=== PATIENT | male | born 1955 | race Caucasian/White ===

== ENCOUNTER 2020-02-22 12:42 | Outpatient (CLI) | payer OTHER, SELFPAY ==
--- NOTE | 2020-02-27 13:39 | WPDPFTINT ---
PFT Interpretation PFT Interpretation: This PFT met all criteria for ATS standards and reproducibility FEV/FVC post bronchodilator 54% FEV1 57% or 1.64 liters FVC 75% or 3.04 liters There was a significant improvement of FVC by 17% and 440 ml post bronchodilator TLC 104% RV 159% RV/TLC 58% DLCO 75% when adjusted for alveolar volume but not adjusted for hemoglobin Flow volume loops showed significant expiratory coving Impression: Moderate airflow obstruction with good response to bronchodilators. Air trapping and mildly reduced diffusion capacity. This pattern is suggestive of COPD with Asthma componenet. Clinical correlation is advised.
--- NOTE | 2020-02-27 13:42 | WPDSIXMINUTE ---
Six Minute Walk Six Minute Walk: The patients O2 sats started at 96% and dropped as low as 94% Total walk distance 304.80 meters conclusion:This patient does not qualify for home oxygen therapy.
== END 2020-02-22 12:43 | disposition home or self-care (01) ==
LOC: ANHPFT 12:44
PROVIDERS: PCP Emergency Medicine; Visit Provider Internal Medicine Critical Care Medicine
DX: J44.9 Chronic obstructive pulmonary disease, unspecified (principal)
CPT/HCPCS: 94060; 94618; 94726; 94729

== ENCOUNTER 2020-05-15 10:53 | Emergency (ER) | payer OTHER, SELFPAY ==
[2020-05-15] VITALS (19 sets, daily range): BP systolic 79–125; BP diastolic 49–93; PULSE 76–97; RESP 14–26; TEMP 36.3; O2SAT 96–99
--- NOTE | ~2020-05-15 | XR_ITS ---
XR chest 2V DATE: 05/15/2020 11:28 INDICATION: Chest pain, dizziness. History of COPD. TECHNIQUE: PA and lateral views COMPARISON: None FINDINGS: Left-sided triple lead pacemaker device with leads overlying coronary sinus, right atrium a nd right ventricle. Status post sternotomy, coronary artery bypass graft surgery and cardiac valve replacement. Normal heart size. No hilar or mediastinal enlargement. No pulmonary infiltrate or consolidation, pleural effusion or pulmonary vascular congestion or pneumo thorax. IMPRESSION: No active cardiopulmonary disease Status post sternotomy, coronary bypass graft surgery, cardiac valve replacement Reviewed, dictated and finalized at location A. L PATTERNMAKER IMPRESSION: No active cardiopulmonary disease Status post sternotomy, coronary bypass graft surgery, cardiac valve replacemen t
--- NOTE | 2020-05-15 11:02 | ECG_ITS ---
Measurements Intervals [place] Rate: 80 P: 96 HI: 122 QRS: 160 QRSD: 156 T: 56 QT: 408 QTc: 473 Interpretive Statements ELECTRONIC ATRIAL PACEMAKER WITH INHIBITION ELECTRONIC VENTRICULAR PACEMAKER ATRIAL PREMATURE COMPLEXES NO FURTHER INTERPRETATION IS POSSIBLE ATYPICAL ECG Electronically Signed On 05-15-2020 13:01:12 [employer] by Russell Dumont D.O.
--- NOTE | 2020-05-15 11:19 | ED.CHESTPAIN ---
HPI - Chest Pain General Chief Complaint: Chest Pain Stated Complaint: chest pain Time Seen by Provider: 05/15/20 10:57 Source: patient Mode of arrival: EMS Limitations: no limitations History of Present Illness HPI narrative: This patient is a 64 year old male with history tricuspid regurgitation s/p valve replacement who presents for evaluation left chest pain. He states he was sitting in jewish when he developed left chest pain. He describes his pain has sharp, shooting. He denies radiation of his pain. He does reports dizziness and diaphoresis with his pain. He was evaluated at [facility] and he was referred to [facility]. HE was given aspirin 324 mg and nitroglycerin by EMS. He states his pain has resolved. In 2018 , states he had a valve replacement. He also reports cardiac catheterization that was negative for coronary disease. He does not follow with a insurance compliance analyst. MD complaint: chest pain Timing of current episode: now resolved Onset: during rest Related Data Home Medications Medication Instructions Recorded Confirmed furosemide 20 mg tablet See Rx Instructions .ROUTE .COMPLEX 03/10/19 04/11/20 inhalational spacing device #1 each 03/10/19 04/11/20 pantoprazole 20 mg tablet,delayed 20 mg PO DAILY tablet 03/10/19 04/11/20 release potassium chloride 20 mEq 20 meq PO .COMPLEX 03/10/19 04/11/20 tablet,extended release aspirin 81 mg tablet,delayed 81 mg PO DAILY 04/11/20 04/11/20 release warfarin 2.5 mg tablet 2.5 mg PO DAILY 04/11/20 04/11/20 Allergies Allergy/AdvReac Type Severity Reaction Status Date / Time acenocoumarol AdvReac Unknown Unknown Verified 05/15/20 10:57 Review of Systems Review of Systems: All systems reviewed & are unremarkable except as noted in HPI and below Constitutional: Constitutional: Denies chills and Denies fever(s) Cardiovascular: Cardiovascular: Reports chest pain, Denies rapid heart rate and Denies radiating jaw, neck or arm pain Respiratory: Respiratory: Denies cough and Denies dyspnea Gastrointestinal: Gastrointestinal: Denies abdominal pain and Reports nausea PMFSH Past Medical History Medical History Artificial pacemaker Chronic obstructive pulmonary disease Cirrhosis Complete heart block GERD (gastroesophageal reflux disease) Hepatitis C Sleep apnea Tricuspid insufficiency Family History Family History Father Lung cancer Acute alcoholic intoxication Social History Social History Smoking status: Former smoker Smoking end date: 04/01/16 Alcohol intake: never Exam Narrative: Exam Narrative: GENERAL: Well-appearing, well-nourished, and in no acute distress. HEAD: Normocephalic, atraumatic EYES: PERRLA and EOMI, conjunctiva clear without discharge THROAT:Mucous membranes moist, Oropharynx normal without erythema, exudate, peritonsillar swelling or fluctuance NECK: Supple, without lymphadenopathy or mass RESPIRATORY: No respiratory distress, Airway patent, Respirations non-labored, Clear to auscultation without rales, rhonchi or wheeze HEART: Regular rate and rhythm. No murmur heard. Normal peripheral pulses. ABDOMEN: Soft, nontender, nondistended, normal active bowel sounds. No masses. No rebound or guarding, No organomegaly. EXTREMITIES: No edema, normal strength with full range of motion. SKIN: Warm, dry, normal color without rash NEURO: Alert and oriented x3. CN 2-12 grossly intact. No focal deficits. PSYCH: Normal mood and affect. Course Reevaluation(s) Reevaluation #1: Patient states his pain is still gone. I Discussed that he will be admitted for observation Date: 05/15/20 Time: 12:28 Reevaluation #2: Patient has now decided that he wants to sign AMA. I strongly recommended that he stays for observation to rule out [place]. I discussed that although lab t
[2020-05-15 11:47] LABS: Basophils Percent Auto 0.8 % (0.2-1.2); Eosinophils Absolute Auto 0.1 K/mm3 (0-0.3); Eosinophils Percent Auto 2.5 % (0-4.4); Hematocrit 42.5 % (42.0-52.0); Hemoglobin 14.6 g/dL (14.0-18.0); Immature Granulocyte Absolute 0.02 K/mm3 (0.00-0.031); Immature Granulocyte Percent A 0.4 % (0-0.5); Lymphocytes Absolute Auto 1.47 K/mm3 (0.9-3.2); Lymphocytes Percent Auto 28.8 % (18.3-44.2); Mean Corpuscular HGB Conc 34.4 g/dl (32-36); Mean Corpuscular Hemoglobin 31.5 pg (26-34); Mean Corpuscular Volume 91.8 fl (80-100); Mean Platelet Volume 9.8 fl (7.4-10.4); Monocytes Absolute Auto 0.6 K/mm3 (0.1-0.6); Monocytes Percent Auto 10.8 % (2.6-8.5); Neutrophils Absolute Auto 2.9 K/mm3 (1.3-6.7); Neutrophils Percent Auto 56.7 % (45.5-73.1); Platelet Count Result 109 k/mm3 (150-375); Red Blood Count 4.63 M/mm3 (4.6-6.20); Red Cell Distribution Width 13.2 % (11.5-14.5); White Blood Count 5.1 K/mm3 (4.5-10.0)
[2020-05-15 11:56] LABS: Partial Thromboplastin Time 28.8 SECONDS (22.3-36.8)
[2020-05-15 11:57] LABS: Anion Gap 3 mmol/L (8-16); Blood Urea Nitrogen 17 mg/dL (9-20); Calcium 9.1 mg/dL (8.4-10.2); Carbon Dioxide 28 mmol/L (22-30); Chloride 107 mmol/L (98-107); Estimated CRCL calculation 70 ml/min; Estimated Glomerular Filt Rate > 60; Glucose 97 mg/dL (75-110); Potassium 4.8 mmol/L (3.4-5.0); Sodium 138 mmol/L (137-145)
[2020-05-15 12:03] LABS: INR 1.1; Prothrombin Time 14.5 Seconds (11.1-14.7)
[2020-05-15 12:09] LABS: Troponin I < 0.012 ng/mL (0.000-0.034)
--- NOTE | 2020-05-15 12:09 | ECG_ITS ---
Measurements Intervals [place] Rate: 79 P: 91 MN: 136 QRS: 222 QRSD: 146 T: 55 QT: 407 QTc: 468 Interpretive Statements ELECTRONIC ATRIAL PACEMAKER WITH INHBITION ELECTRONIC VENTRICULAR PACEMAKER BASELINE ARTIFACT- II, III, AVF NO FURTHER INTERPRETATION IS POSSIBLE ATYPICAL ECG Electronically Signed On 05-15-2020 13:07:31 BAND CUTTER by Russell Dumont D.O.
== END 2020-05-15 14:10 | disposition left against medical advice (07) ==
PROVIDERS: Emergency Provider General Practice; PCP Emergency Medicine
DX: J44.9 Chronic obstructive pulmonary disease, unspecified (principal); K74.60 Unspecified cirrhosis of liver; K21.9 Gastro-esophageal reflux disease without esophagitis; G47.30 Sleep apnea, unspecified; Z95.2 Presence of prosthetic heart valve; I07.1 Rheumatic tricuspid insufficiency; Z95.1 Presence of aortocoronary bypass graft; Z87.891 Personal history of nicotine dependence; Z79.82 Long term (current) use of aspirin; Z79.01 Long term (current) use of anticoagulants; Z95.0 Presence of cardiac pacemaker; I49.1 Atrial premature depolarization
CPT/HCPCS: 36415; 71046; 80048; 84484; 85025; 85055; 85610; 85730; 93005; 99284

== ENCOUNTER 2020-06-21 07:40 | Outpatient (CLI) | payer OTHER, SELFPAY ==
--- NOTE | 2020-07-06 10:25 | WPDHOMESLEEP ---
Sleep Study - Home Unattended Date of Study: 06/21/20 Ordering Provider: Lukas Crabtree APRN Interpreting Provider: Rach Ha MD Home Sleep Study Type: Apnea Link Air Height: 1.71 m Weight: 78.018 kg Body Mass Index: 26.5 Neck Circumference (inches): 18 Reason for Sleep Study multiple awakenings at night, daytime sleepiness Sleep History Javan Betancur is a 65 year old man with COPD/asthma overlap, quit tobacco in 2018. He has excessive daytime sleepiness, and wakes up multiple times during the night. He did not complete the sleep questionnaire. [facility] Past Medical History Medical History Artificial pacemaker Chronic obstructive pulmonary disease Cirrhosis Complete heart block GERD (gastroesophageal reflux disease) Hepatitis C Sleep apnea Tricuspid insufficiency Family History Family History Father Lung cancer Acute alcoholic intoxication Social History Social History Smoking status: Former smoker Smoking end date: 04/01/16 Alcohol intake: never Medications Home Medications Medication Instructions Recorded Confirmed Type furosemide 20 mg tablet See Rx Instructions .ROUTE .COMPLEX 03/10/19 04/11/20 History inhalational spacing device #1 each 03/10/19 04/11/20 History pantoprazole 20 mg tablet,delayed 20 mg PO DAILY tablet 03/10/19 04/11/20 History release potassium chloride 20 mEq 20 meq PO .COMPLEX 03/10/19 04/11/20 History tablet,extended release albuterol sulfate 2.5 mg INHALATION Q4-6H PRN 30 01/13/20 04/11/20 Rx Days #90 ml tramadol 50 mg tablet 50 mg PO Q6H PRN #60 tablet 03/05/20 04/11/20 Rx albuterol sulfate 90 mcg/actuation See Rx Instructions .ROUTE 04/11/20 04/11/20 Rx aerosol inhaler .COMPLEX #18 g aspirin 81 mg tablet,delayed 81 mg PO DAILY 04/11/20 04/11/20 History release budesonide-formoterol HFA 160 2 puff INHALATION Q12H #10.2 g 04/11/20 04/11/20 Rx mcg-4.5 mcg/actuation aerosol inhaler tiotropium bromide 2.5 2 puff INHALATION DAILY #4 g 04/11/20 04/11/20 Rx mcg/actuation mist for inhalation warfarin 2.5 mg tablet 2.5 mg PO DAILY 04/11/20 04/11/20 History sildenafil 50 mg tablet 50 mg PO DAILY PRN #30 tablet 05/09/20 Rx zolpidem 10 mg tablet 10 mg PO ONCE PRN #30 tablet 06/02/20 Rx Sleep Procedure This test was performed using 4 channel monitoring including respiratory effort channel, snoring channel, heart rate channel, and oxygen saturation channel. This study was scored using [facility] guidelines. Sleep Architecture Not applicable for home sleep test. Respiratory Analysis Recording time is 5 hours 12 minutes. Evaluation time was 4 hours 50 minutes. The apnea-hypopnea index is 12.2. There were 16 apneas. There were 15 obstructive apneas, 94% of the total and 1 central apnea, 6% of the total. There were 43 hypopneas. There was no evidence of Keith-Pineda respirations. Oximetry Data The oxygen desaturation index is 11.4. The average saturation is 92% which is below normal. The lowest saturation is 41%. The patient desaturated 40 4 times and spent 48 minutes below 88% saturation, 21% of the study. Snoring Profile Snoring was present with 542 episodes. Cardiac Profile The lowest heart rate is 41. The highest heart rate is 155. The mean pulse is 78. Assessment and Plan Assessment and Plan (1) Obstructive sleep apnea: Code(s): G47.33 - Obstructive sleep apnea (adult) (pediatric) Status: Acute Assessment and Plan: This home sleep test using ApneaLink on May shows at least mild obstructive sleep apnea with an apnea-hypopnea index of 12.2 with multiple severe desaturations and sustained hypoxemia for 21% of the study, 48 minutes spent below 88%. The lowest desaturation is 41% and the average saturation is below normal at 92%
[2020-07-06 10:29] VITALS: BMI 26.5
== END 2020-06-21 07:41 | disposition home or self-care (01) ==
LOC: ANHCSM 07:44
PROVIDERS: PCP Emergency Medicine; Visit Provider Nurse Practitioner Family
DX: G47.30 Sleep apnea, unspecified (principal)
CPT/HCPCS: 95806

== ENCOUNTER → 2020-08-27 03:24 | Outpatient (CLI) | payer MEDICARE, MEDICAID, SELFPAY ==
[2020-08-27 19:45] LABS: SARS-CoV-2 RNA PCR Negative
== END ==
PROVIDERS: PCP Emergency Medicine; Visit Provider Internal Medicine Critical Care Medicine
DX: R68.89 Other general symptoms and signs (principal); Z20.822 Contact with and (suspected) exposure to COVID-19
CPT/HCPCS: C9803; U0003; U0005

== ENCOUNTER 2022-05-17 13:21 | Outpatient (CLI) | payer MEDICARE, MEDICAID, SELFPAY ==
[2022-05-17 14:39] LABS: Hematocrit 46.6 % (42.0-52.0); Hemoglobin 15.4 g/dL (14.0-18.0); Mean Corpuscular Hemoglobin 30.8 pg (26-34); Mean Corpuscular Volume 93.2 fl (80-100); Mean Platelet Volume 10.7 fl (7.4-10.4); Platelet Count Result 150 k/mm3 (150-375); Red Cell Distribution Width 13.2 % (11.5-14.5); White Blood Count 8.4 K/mm3 (4.5-10.0)
[2022-05-17 14:40] LABS: Alanine Aminotransferase 26 U/L (6-50); Albumin Level 4.6 g/dL (3.5-5.1); Alkaline Phosphatase 81 U/L (38-126); Anion Gap 7 mmol/L (8-16); Aspartate Amino Transferase 25 U/L (17-59); Bilirubin,Total 0.5 mg/dL (0.2-1.3); Blood Urea Nitrogen 13 mg/dL (9-20); Carbon Dioxide 27 mmol/L (22-30); Chloride 98 mmol/L (98-107); Estimated Glomerular Filt Rate > 60; Glucose 103 mg/dL (65-110); Potassium 4.4 mmol/L (3.4-5.0); Sodium 132 mmol/L (137-145)
[2022-05-17 15:41] LABS: Hepatitis B Surface Antigen Negative (Negative)
[2022-05-20 12:14] LABS: Hepatitis B DNA PCR 2.35 Log IU/mL; Hepatitis B DNA PCR 226 IU/mL
[2022-05-22 03:03] LABS: Hepatitis Be Antibody Reactive; Hepatitis Be Antigen Nonreactive
== END 2022-05-17 13:22 | disposition home or self-care (01) ==
LOC: ANHLAB 13:30
PROVIDERS: PCP Emergency Medicine; Visit Provider Internal Medicine Gastroenterology
DX: K74.60 Unspecified cirrhosis of liver (principal); B19.10 Unspecified viral hepatitis B 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
CPT/HCPCS: 36415; 80053; 85027; 86707; 87340; 87350; 87517

== ENCOUNTER 2022-06-15 00:53 | Day surgery (SDC) | payer MEDICARE, MEDICAID, SELFPAY ==
[2022-06-05 15:11] VITALS: BMI 29.8
[2022-06-15 13:03] VITALS: BP 144/87; PULSE 93; RESP 18; TEMP 36.1; O2SAT 97
[2022-06-15] MEDS: LACTATED RINGERS 1,000 ML 150 ML IV CONT (13:04)
[2022-06-15] MEDS: GENTAMICIN 80MG/SOD CHL 50 ML 80 MG/50 ML BAG 100 MG IVPB (13:09)
--- NOTE | 2022-06-15 13:29 | WPDANESEPPF ---
Anes - Initial Pre Proc Eval Procedure: Operation Date: 06/15/22 14:30 Proposed Procedures p Esophagogastroduodenoscopy - Tomy Barajas MD Date/Time: 06/15/22 13:29 Surgeon: Tomy Barajas MD Pre Op Diagnosis: cirrhosis of the liver Patient Data Age: 66 Gender: M Height: 1.7 m Weight: 91.1 kg Last Vital Signs Temp 36.1 C L 06/15/22 13:03 Pulse 93 06/15/22 13:03 Resp 18 06/15/22 13:03 BP 144/87 H 06/15/22 13:03 Pulse Ox 97 06/15/22 13:03 O2 Del Method Room Air 06/15/22 13:03 Allergies Allergy/AdvReac Type Severity Reaction Status Date / Time acenocoumarol AdvReac Unknown Unknown Verified 06/15/22 13:01 Home Medications Medication Instructions Recorded Confirmed Type inhalational spacing device (Space #1 ea 03/10/19 03/07/21 History Chamber Plus) pantoprazole 20 mg tablet,delayed 20 mg PO DAILY PRN Acid Reflux 03/10/19 06/15/22 History release potassium chloride 20 mEq 20 meq PO .COMPLEX 03/10/19 06/15/22 History tablet,extended release aspirin 81 mg tablet,delayed 81 mg PO DAILY 04/11/20 06/15/22 History release (Adult Aspirin Regimen) budesonide-formoterol HFA 160 2 puff inhalation Q12H #10.2 grams 04/11/20 06/15/22 Rx mcg-4.5 mcg/actuation aerosol inhaler (Symbicort) tiotropium bromide 2.5 2 puff inhalation DAILY #4 grams 04/11/20 06/15/22 Rx mcg/actuation mist for inhalation (Spiriva Respimat) zolpidem 10 mg tablet 10 mg PO ONCE PRN insomnia #30 tabs 05/01/21 06/15/22 Rx spironolactone 25 mg tablet 25 mg PO DAILY 04/17/22 06/15/22 History warfarin 2.5 mg tablet 2.5 mg PO .COMPLEX 04/17/22 06/15/22 History tramadol 50 mg tablet 50 mg PO Q6H PRN pain #60 tabs 05/08/22 06/15/22 Rx albuterol sulfate 2.5 mg/3 mL 2.5 mg (3 mL) inhalation Q4-6H PRN 05/17/22 06/15/22 Rx (0.083 %) solution for nebulization shortness of breath or wheezing 30 days #90 mL albuterol sulfate 90 mcg/actuation See Rx Instructions .Route 05/17/22 06/15/22 Rx aerosol inhaler .COMPLEX #18 grams entecavir 0.5 mg tablet 0.5 mg PO DAILY #30 tabs 05/21/22 06/15/22 Rx Patient hx anesthesia problems: none Family hx anesthesia problems: none Results Review: All pre-operative results and documents have been reviewed as part of the pre-operative evaluation. [facility] Past Medical History Medical History Abdominal distension Artificial pacemaker Chronic obstructive pulmonary disease Cirrhosis Colon cancer screening Complete heart block GERD (gastroesophageal reflux disease) Hepatitis B Hepatitis C Sleep apnea Tricuspid insufficiency Surgical History Surgical History History of heart valve replacement Family History Family History Father Lung cancer Acute alcoholic intoxication Social History Social History Smoking packs per day: 0.5 Smoking cigarettes per day: 10.0 Years smoked: 40 Smoking pack-years: 20.00 Smoking status: Former smoker Tobacco type: cigarettes Smoking end date: 04/01/18 Alcohol intake: never Substance use: never Substance use type: does not use Living arrangements: with family Spiritual care concerns: No Anes - Eval Final PreProcedure Day of Procedure 06/15/22 13:29 Patient weight: obese Heart: regular rate and rhythm Lungs: clear to auscultation Airway: Mallampati scale class II Neurological: alert and oriented Last oral intake: >/= 8 hours ASA classification: IV Emergent: no Anesthetic plan: proceed Anesthesia type and monitoring: general GIVS and standard monitoring Results Review: All pre-operative results and documents have been reviewed as part of the pre-operative evaluation. Informed Consent: The patient's anesthetic plan and its attendant risks and
[2022-06-15] MEDS: AMPICILLIN 2 GM/NS 100 ML 2 GM/100 ML BAG IVPB (13:31)
--- NOTE | 2022-06-15 13:45 | PM.HPGS ---
History of Present Illness History of Present Illness Consent: Risks, benefits, and alternatives have been discussed and questions answered. Patient agrees to proceed with procedure. Chief complaint: cirrhosis of the liver Narrative: Javan Betancur is a 66 year old male with increased abdominal girth and can not get weight off but recent abdominal ultrasound showed cirrhosis, he has HBV (low dna but still present, recently restarted on entecavir given known h/o cirrhosis) Review of Systems Constitutional: Constitutional: Denies headache(s) and Denies weakness Eyes: Eyes: Denies blurry vision ENT: Reports Normal hearing present, Denies headache(s) and Denies neck pain Cardiovascular: Cardiovascular: Denies chest pain and Denies dyspnea Respiratory: Respiratory: Denies dyspnea Gastrointestinal: Gastrointestinal: Reports no additional gastrointestinal complaints Genitourinary: Genitourinary: Denies dysuria Musculoskeletal: Musculoskeletal: Denies neck pain Integumentary/Breasts: Skin/Breast: Denies dry skin Neurologic: Reports Normal hearing present, Denies headache(s) and Denies weakness Psychiatric: Psychiatric: Denies anxiety Endocrine: Endocrine: Denies change in body appearance Hematologic/Lymphatic: Hematologic/Lymphatic: Denies easy bleeding Allergic/Immunologic: Allergic/Immunologic: Denies urticaria PMFSH Past Medical History Medical History Abdominal distension Artificial pacemaker Chronic obstructive pulmonary disease Cirrhosis Colon cancer screening Complete heart block GERD (gastroesophageal reflux disease) Hepatitis B Hepatitis C Sleep apnea Tricuspid insufficiency Surgical History Surgical History History of heart valve replacement Family History Family History Father Lung cancer Acute alcoholic intoxication Social History Social History Smoking packs per day: 0.5 Smoking cigarettes per day: 10.0 Years smoked: 40 Smoking pack-years: 20.00 Smoking status: Former smoker Tobacco type: cigarettes Smoking end date: 04/01/18 Alcohol intake: never Substance use: never Substance use type: does not use Living arrangements: with family Spiritual care concerns: No Meds Home Medications and Allergies Home Medications Medication Instructions Recorded Confirmed Type inhalational spacing device (Space #1 ea 03/10/19 03/07/21 History Chamber Plus) pantoprazole 20 mg tablet,delayed 20 mg PO DAILY PRN Acid Reflux 03/10/19 06/15/22 History release potassium chloride 20 mEq 20 meq PO .COMPLEX 03/10/19 06/15/22 History tablet,extended release aspirin 81 mg tablet,delayed 81 mg PO DAILY 04/11/20 06/15/22 History release (Adult Aspirin Regimen) budesonide-formoterol HFA 160 2 puff inhalation Q12H #10.2 grams 04/11/20 06/15/22 Rx mcg-4.5 mcg/actuation aerosol inhaler (Symbicort) tiotropium bromide 2.5 2 puff inhalation DAILY #4 grams 04/11/20 06/15/22 Rx mcg/actuation mist for inhalation (Spiriva Respimat) zolpidem 10 mg tablet 10 mg PO ONCE PRN insomnia #30 tabs 05/01/21 06/15/22 Rx spironolactone 25 mg tablet 25 mg PO DAILY 04/17/22 06/15/22 History warfarin 2.5 mg tablet 2.5 mg PO .COMPLEX 04/17/22 06/15/22 History tramadol 50 mg tablet 50 mg PO Q6H PRN pain #60 tabs 05/08/22 06/15/22 Rx albuterol sulfate 2.5 mg/3 mL 2.5 mg (3 mL) inhalation Q4-6H PRN 05/17/22 06/15/22 Rx (0.083 %) solution for nebulization shortness of breath or wheezing 30 days #90 mL albuterol sulfate 90 mcg/actuation See Rx Instructions .Route 05/17/22 06/15/22 Rx aerosol inhaler .COMPLEX #18 grams entecavir 0.5 mg tablet 0.5 mg PO DAILY #30 tabs 05/21/22 06/15/22 Rx Allergies Allergy/AdvReac Type Severity Reaction Status Date /
[2022-06-15 13:56] VITALS: BP 114/73; PULSE 74; RESP 20; O2SAT 99
[2022-06-15 14:06] VITALS: BP 108/73; PULSE 77; RESP 21; O2SAT 97
== END 2022-06-15 14:27 | disposition home or self-care (01) ==
PROVIDERS: PCP Emergency Medicine; Visit Provider Internal Medicine Gastroenterology
PROC: 0DJ08ZZ Inspection of Upper Intestinal Tract, Via Natural or Artificial Opening Endoscopic (ICD-10-PCS; CPT 43235; principal; 2022-06-15 14:30)
DX: K29.70 Gastritis, unspecified, without bleeding (principal); K74.60 Unspecified cirrhosis of liver; K21.9 Gastro-esophageal reflux disease without esophagitis; J44.9 Chronic obstructive pulmonary disease, unspecified; G47.30 Sleep apnea, unspecified; B19.10 Unspecified viral hepatitis B 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; B19.20 Unspecified viral hepatitis C 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; I44.2 Atrioventricular block, complete; Z79.82 Long term (current) use of aspirin; Z95.0 Presence of cardiac pacemaker; Z95.4 Presence of other heart-valve replacement; Z79.51 Long term (current) use of inhaled steroids; Z87.891 Personal history of nicotine dependence; E66.9 Obesity, unspecified; Z68.31 Body mass index [BMI] 31.0-31.9, adult
CPT/HCPCS: 43235; J0290; J1580; J2704; J7120

== ENCOUNTER 2022-12-06 13:39 | Outpatient (CLI) | payer MEDICARE, MEDICAID, SELFPAY ==
[2022-12-06 14:23] LABS: Hematocrit 38.9 % (42.0-52.0); Hemoglobin 12.7 g/dL (14.0-18.0); Immature Platelet Fraction Pct 9.3 % (0.9-11.2); Mean Corpuscular HGB Conc 32.6 g/dl (32-36); Mean Corpuscular Hemoglobin 31.1 pg (26-34); Mean Corpuscular Volume 95.3 fl (80-100); Mean Platelet Volume 11.2 fl (7.4-10.4); Platelet Count Result 98 k/mm3 (150-375); Red Blood Count 4.08 M/mm3 (4.6-6.20); Red Cell Distribution Width 13.6 % (11.5-14.5); White Blood Count 5.6 K/mm3 (4.5-10.0)
[2022-12-06 14:36] LABS: Alanine Aminotransferase 36 U/L (6-50); Alkaline Phosphatase 62 U/L (38-126); Anion Gap 4 mmol/L (8-16); Aspartate Amino Transferase 33 U/L (17-59); Bilirubin,Total 0.6 mg/dL (0.2-1.3); Blood Urea Nitrogen 14 mg/dL (9-20); Calcium 8.8 mg/dL (8.4-10.2); Carbon Dioxide 31 mmol/L (22-30); Chloride 104 mmol/L (98-107); Estimated Glomerular Filt Rate > 60; Glucose 120 mg/dL (65-110); Potassium 3.9 mmol/L (3.4-5.0); Sodium 139 mmol/L (137-145)
[2022-12-06 20:39] LABS: Hepatitis B Surface Antigen 3.79 S/C; Hepatitis B Surface Antigen Reactive (Negative)
[2022-12-06 20:42] LABS: Hepatitis B Surface Antigen Re 3.64 S/C; Hepatitis B Surface Antigen Re 3.81 S/C
[2022-12-10 18:51] LABS: Hepatitis B Core Ab Total Reactive (Nonreactive)
== END 2022-12-06 13:40 | disposition home or self-care (01) ==
LOC: ANHLAB 13:45
PROVIDERS: PCP Emergency Medicine; Visit Provider Nurse Practitioner
DX: B19.10 Unspecified viral hepatitis B 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 (principal)
CPT/HCPCS: 36415; 80053; 85027; 85055; 86704; 87340; 87517

== ENCOUNTER 2022-12-26 09:47 | Outpatient (CLI) | payer MEDICARE, MEDICAID, SELFPAY ==
--- NOTE | ~2022-12-26 | US_ITS ---
US right upper quadrant INDICATION: Cirrhosis of the liver. PROCEDURE: Realtime right upper abdominal ultrasound. COMPARISON: No prior studies for comparison. FINDINGS: The pancreas is normal without focal mass or pancreatic ductal dilation. Liver echotexture is heterogeneous. There is nodular liver surface, compatible with cirrhosis. There is normal direct ional flow in the portal vein. There is a 1 cm echogenic focus in the gallbladder lumen without posterior shadowing and associated i nternal vascularity, consistent with polyp. Common bile duct measures 6.8 mm. No sonographic Downey 's sign. IMPRESSION: 1: Cirrhosis. 2: Gallbladder polyp measuring 1 cm. Reviewed, dictated and finalized at location B.
== END 2022-12-26 09:48 | disposition home or self-care (01) ==
LOC: ANHIMG 09:50
PROVIDERS: PCP Emergency Medicine; Visit Provider Internal Medicine Gastroenterology
DX: K74.60 Unspecified cirrhosis of liver (principal); B19.10 Unspecified viral hepatitis B 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; K82.4 Cholesterolosis of gallbladder
CPT/HCPCS: 76705

== ENCOUNTER 2023-05-29 07:22 | Outpatient (CLI) | payer MEDICARE, MEDICAID, SELFPAY ==
--- NOTE | ~2023-05-29 | US_ITS ---
Limited Abdominal Sonogram: Real-time sonographic imaging of the right upper quadrant was performed. Clinical History: Cirrhosis Findings: The liver appears mildly heterogeneous and nodular, with no evidence of mass lesion or alicia e duct dilatation. Main portal vein demonstrates normal direction of flow. The gallbladder is well di stended, and contains a small echogenic gallstone. No gallbladder wall thickening. The common bile du ct measures 4 mm. The visualized pancreas, aorta, and IVC are unremarkable. Impression: Morphologic findings of the liver consistent with cirrhosis. Small gallstone. Reviewed, dictated and finalized at location . AIS[employer] SPECIALIST Impression: Morphologic findings of the liver consistent with cirrhosis. Small gallstone.
== END 2023-05-29 07:23 | disposition home or self-care (01) ==
PROVIDERS: PCP Emergency Medicine; Visit Provider Internal Medicine Gastroenterology
DX: K80.20 Calculus of gallbladder without cholecystitis without obstruction (principal); K74.60 Unspecified cirrhosis of liver
CPT/HCPCS: 76705

== ENCOUNTER 2023-06-13 11:54 | Outpatient (CLI) | payer MEDICARE, MEDICAID, SELFPAY ==
[2023-06-13 12:56] LABS: Hematocrit 44.5 % (42.0-52.0); Hemoglobin 14.2 g/dL (14.0-18.0); Immature Platelet Fraction Pct 10.2 % (0.9-11.2); Mean Corpuscular HGB Conc 31.9 g/dl (32-36); Mean Corpuscular Hemoglobin 30.6 pg (26-34); Mean Corpuscular Volume 95.9 fl (80-100); Mean Platelet Volume 11.6 fl (7.4-10.4); Platelet Count Result 104 k/mm3 (150-375); Red Blood Count 4.64 M/mm3 (4.6-6.20); Red Cell Distribution Width 13.7 % (11.5-14.5); White Blood Count 6.9 K/mm3 (4.5-10.0)
[2023-06-13 13:08] LABS: Alanine Aminotransferase 29 U/L (6-50); Albumin Level 4.2 g/dL (3.5-5.1); Alkaline Phosphatase 101 U/L (38-126); Anion Gap 6 mmol/L (8-16); Aspartate Amino Transferase 30 U/L (17-59); Bilirubin,Total 0.4 mg/dL (0.2-1.3); Blood Urea Nitrogen 11 mg/dL (9-20); Calcium 9.3 mg/dL (8.4-10.2); Carbon Dioxide 31 mmol/L (22-30); Chloride 102 mmol/L (98-107); Estimated Glomerular Filt Rate > 60; Glucose 143 mg/dL (65-110); Sodium 139 mmol/L (137-145)
[2023-06-17 07:47] LABS: Hepatitis B DNA PCR Not Detected
[2023-06-19 21:16] LABS: Hepatitis Delta Antibody NEGATIVE
== END 2023-06-13 11:55 | disposition home or self-care (01) ==
PROVIDERS: PCP Emergency Medicine; Visit Provider Internal Medicine Gastroenterology
DX: B19.10 Unspecified viral hepatitis B 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 (principal); K74.60 Unspecified cirrhosis of liver
CPT/HCPCS: 36415; 80053; 85027; 85055; 86692; 87517

== ENCOUNTER 2023-06-19 11:43 | Emergency (ER) | payer MEDICARE, MEDICAID, SELFPAY ==
[2023-06-19 11:55] VITALS: BP 152/85; PULSE 77; RESP 20; TEMP 36.6; O2SAT 97
--- NOTE | 2023-06-19 12:37 | ED.SKABFB ---
HPI - Skin/Abscess/Foreign Bdy General Chief complaint: Skin/Abscess/Foreign Body Stated complaint: Right Hand Thumb Pain Time Seen by Provider: 06/19/23 12:37 Source: patient Mode of arrival: ambulatory Limitations: no limitations History of Present Illness HPI narrative: 67 yo M presents with c/o redness, swelling and pain to R thumb for 2 days. Denies injury. afebrile. ROM and distal NV intact. All systems reviewed and negative except as noted above. Related Data Home Medications Medication Instructions Recorded Confirmed inhalational spacing device (Space #1 ea 03/10/19 06/19/23 Chamber Plus) potassium chloride 20 mEq 20 meq PO .COMPLEX 03/10/19 06/19/23 tablet,extended release aspirin 81 mg tablet,delayed 81 mg PO DAILY 04/11/20 06/19/23 release (Adult Aspirin Regimen) spironolactone 25 mg tablet 25 mg PO DAILY 04/17/22 06/19/23 warfarin 2.5 mg tablet 2.5 mg PO .COMPLEX 04/17/22 06/19/23 Allergies Allergy/AdvReac Type Severity Reaction Status Date / Time acenocoumarol AdvReac Unknown Unknown Verified 06/19/23 11:57 Review of Systems Review of Systems: CONSTITUTIONAL: Denies fever, chills, or sweats. EYES: Denies visual changes, redness, or discharge. ENT: Denies rhinorrhea, congestion, sore throat, or otalgia. CARDIOVASCULAR: Denies chest pain, palpitations, or edema. RESPIRATORY: Denies cough or dyspnea. GASTROINTESTINAL: Denies abdominal pain, nausea, vomiting, or diarrhea. GENITOURINARY: Denies dysuria or hematuria. SKIN: Denies rash or itching. reports redness, swelling, tenderness to R thumb MUSCULOSKELETAL: Denies back pain, joint pain, or myalgia. NEUROLOGIC: Denies headache, numbness, or weakness. PSYCHIATRIC: Denies anxiety or depression. All other systems reviewed are negative, except as documented in HPI. [facility]LY [facility] Past Medical History Medical History Abdominal distension Artificial pacemaker Chronic obstructive pulmonary disease Cirrhosis Colon cancer screening Complete heart block GERD (gastroesophageal reflux disease) Hepatitis B Hepatitis C History of Coumadin therapy Sleep apnea Thrombocytopenia Tricuspid insufficiency Surgical History Surgical History History of heart valve replacement Family History Family History Father Lung cancer Acute alcoholic intoxication Social History Social History Smoking packs per day: 0.5 Smoking cigarettes per day: 10.0 Years smoked: 40 Smoking pack-years: 20.00 Smoking status: Former smoker Tobacco type: cigarettes Smoking end date: 04/01/18 Alcohol intake: never Substance use: never Substance use type: does not use Lack of Transportation: YES Lack of Food: Sometimes True Current Housing: I Have Housing Concerned About Future Housing: No Difficulty Paying Gas/Electric Bills: No Difficulty Paying for Meds: No Currently Unemployed: No Education: Associate Degree Living arrangements: with family Spiritual care concerns: No Comments At time of signature, agree with nursing past medical, surgical, social and family history. There is no relevant family history pertinent to the presenting complaint. Exam Narrative: GENERAL: This is a well-nourished, well-developed patient, in no apparent distress. HEAD: normocephalic, atraumatic. EYES: PERRL. Sclera clear/white. Vision is grossly intact. EARS: External ears normal NOSE: External nose normal NECK: Neck supple, non-tender without lymphadenopathy, masses or thyromegaly. CARDIOVASCULAR: Regular rate and rhythm without murmurs, gallops, or rubs. RESPIRATORY: Clear to auscultation. Breath sounds equal bilaterally. No wheezes, rales, or rhonchi. SKIN: warm, Dry, intact with no suspicious lesions or rash,
== END 2023-06-19 13:10 | disposition home or self-care (01) ==
PROVIDERS: Emergency Provider Nurse Practitioner Family; PCP Emergency Medicine
DX: L03.011 Cellulitis of right finger (principal); B95.62 Methicillin resistant Staphylococcus aureus infection as the cause of diseases classified elsewhere; Z87.891 Personal history of nicotine dependence; J44.9 Chronic obstructive pulmonary disease, unspecified; K74.60 Unspecified cirrhosis of liver; K21.9 Gastro-esophageal reflux disease without esophagitis; Z95.0 Presence of cardiac pacemaker; Z79.82 Long term (current) use of aspirin; Z79.01 Long term (current) use of anticoagulants
CPT/HCPCS: 10060; 87070; 87075; 87147; 87181; 87205; 99213; G0463

== ENCOUNTER 2023-09-28 13:20 | Emergency (ER) | payer MEDICARE, MEDICAID, SELFPAY ==
[2023-09-28 13:31] VITALS: BP 115/69; PULSE 91; RESP 16; TEMP 36.4; O2SAT 94
--- NOTE | 2023-09-28 13:50 | ED.GENADULT ---
HPI - General Adult General Chief complaint: Unspecified Stated complaint: right side jaw issue Time Seen by Provider: 09/28/23 13:50 History of Present Illness HPI narrative: Patient presents to [facility] complaining of right-sided jaw pain. He reports symptoms have been present for approximately 3 days, worsening. He reports tenderness and swelling. He denies any injury or trauma. He denies fever, chills, sweats. Denies any wounds or openings to the skin Related Data Home Medications Medication Instructions Recorded Confirmed inhalational spacing device (Space #1 ea 03/10/19 09/28/23 Chamber Plus) potassium chloride 20 mEq 20 meq PO .COMPLEX 03/10/19 09/28/23 tablet,extended release aspirin 81 mg tablet,delayed 81 mg PO DAILY 04/11/20 09/28/23 release (Adult Aspirin Regimen) spironolactone 25 mg tablet 25 mg PO DAILY 04/17/22 09/28/23 warfarin 2.5 mg tablet 2.5 mg PO .COMPLEX 04/17/22 09/28/23 Allergies Allergy/AdvReac Type Severity Reaction Status Date / Time acenocoumarol AdvReac Unknown Unknown Verified 09/28/23 13:27 Review of Systems Constitutional: Constitutional: Reports as per HPI and Reports no additional constitutional complaints ENT: Reports system reviewed and no additional complaints, except as documented and Reports facial pain Cardiovascular: Cardiovascular: Reports as per HPI Respiratory: Respiratory: Reports as per HPI [facility] Past Medical History Medical History Abdominal distension Acute hepatitis B with delta-agent 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 Acute non-recurrent frontal sinusitis Artificial pacemaker Bacterial endocarditis Bronchitis Chronic obstructive pulmonary disease Cirrhosis Colon cancer screening Complete heart block COPD mixed type Cough GERD (gastroesophageal reflux disease) GERD without esophagitis Hepatitis B Hepatitis C History of Coumadin therapy Non-rheumatic tricuspid valve insufficiency Primary osteoarthritis involving multiple joints Sinus congestion Sleep apnea Thrombocytopenia Tobacco use Tricuspid insufficiency Viral hepatitis B with hepatitis delta, 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 Vitamin D deficiency Surgical History Surgical History History of heart valve replacement Family History Family History Father Lung cancer Acute alcoholic intoxication Social History Social History Smoking packs per day: 0.5 Smoking cigarettes per day: 10.0 Years smoked: 40 Smoking pack-years: 20.00 Smoking status: Former smoker Tobacco type: cigarettes Smoking end date: 04/01/18 Alcohol intake: never Substance use: never Substance use type: does not use Do You Feel Safe in your Home?: Yes Lack of Transportation: YES Lack of Food: Sometimes True Concerned About Future Housing: Decline to Answer Difficulty Paying Gas/Electric Bills: YES Difficulty Paying for Meds: YES Currently Unemployed: No Education: Associate Degree Difficulty w/ Childcare or Family Care: No Living arrangements: with family Spiritual care concerns: No Exam Const: General: cooperative and comfortable HENMT: Ears: TM normal on the right and TM normal on the left Face images: 1. there is mild swelling with extreme tenderness to palpation. Very minimally red Mouth: Yes Normal oral and palatal mucosa present Other: There is swelling and tenderness to the right side is face extending from the nasal labial fold to the ear. There are no visible open wounds. Patient does shave with a razor. He does not recall cutting himself Neck: Neck: normal visual inspection and no lymphadenopathy Chest: Chest palpation & inspection: normal inspection of the chest and normal palpation of entire chest wall Resp: Effort & Inspect
--- NOTE | 2023-09-28 14:22 | ED.GENADULT ---
HPI - General Adult General Chief complaint: Unspecified Stated complaint: right side jaw issue Time Seen by Provider: 09/28/23 13:50 Related Data Home Medications Medication Instructions Recorded Confirmed inhalational spacing device (Space #1 ea 03/10/19 09/28/23 Chamber Plus) potassium chloride 20 mEq 20 meq PO .COMPLEX 03/10/19 09/28/23 tablet,extended release aspirin 81 mg tablet,delayed 81 mg PO DAILY 04/11/20 09/28/23 release (Adult Aspirin Regimen) spironolactone 25 mg tablet 25 mg PO DAILY 04/17/22 09/28/23 warfarin 2.5 mg tablet 2.5 mg PO .COMPLEX 04/17/22 09/28/23 Allergies Allergy/AdvReac Type Severity Reaction Status Date / Time acenocoumarol AdvReac Unknown Unknown Verified 09/28/23 13:27 [facility] Past Medical History Medical History Abdominal distension Acute hepatitis B with delta-agent 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 Acute non-recurrent frontal sinusitis Artificial pacemaker Bacterial endocarditis Bronchitis Chronic obstructive pulmonary disease Cirrhosis Colon cancer screening Complete heart block COPD mixed type Cough GERD (gastroesophageal reflux disease) GERD without esophagitis Hepatitis B Hepatitis C History of Coumadin therapy Non-rheumatic tricuspid valve insufficiency Primary osteoarthritis involving multiple joints Sinus congestion Sleep apnea Thrombocytopenia Tobacco use Tricuspid insufficiency Viral hepatitis B with hepatitis delta, 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 Vitamin D deficiency Surgical History Surgical History History of heart valve replacement Family History Family History Father Lung cancer Acute alcoholic intoxication Social History Social History Smoking packs per day: 0.5 Smoking cigarettes per day: 10.0 Years smoked: 40 Smoking pack-years: 20.00 Smoking status: Former smoker Tobacco type: cigarettes Smoking end date: 04/01/18 Alcohol intake: never Substance use: never Substance use type: does not use Do You Feel Safe in your Home?: Yes Lack of Transportation: YES Lack of Food: Sometimes True Concerned About Future Housing: Decline to Answer Difficulty Paying Gas/Electric Bills: YES Difficulty Paying for Meds: YES Currently Unemployed: No Education: Associate Degree Difficulty w/ Childcare or Family Care: No Living arrangements: with family Spiritual care concerns: No Course Vital Signs Vital signs: Vital Signs Temperature 97.6 F 09/28/23 13:31 Pulse Rate 91 09/28/23 13:31 Respiratory Rate 16 09/28/23 13:31 Blood Pressure 115/69 09/28/23 13:31 Pulse Oximetry 94 09/28/23 13:31 Oxygen Delivery Room Air 09/28/23 13:31 Temperature 97.6 F 09/28/23 13:31 Pulse Rate 91 09/28/23 13:31 Respiratory Rate 16 09/28/23 13:31 Blood Pressure 115/69 09/28/23 13:31 Pulse Oximetry 94 09/28/23 13:31 Oxygen Delivery Room Air 09/28/23 13:31 Medical Decision Making Vital Signs Vital Signs: Vital Signs Temperature 97.6 F 09/28/23 13:31 Pulse Rate 91 09/28/23 13:31 Respiratory Rate 16 09/28/23 13:31 Blood Pressure 115/69 09/28/23 13:31 Pulse Oximetry 94 09/28/23 13:31 Oxygen Delivery Room Air 09/28/23 13:31 Temperature 97.6 F 09/28/23 13:31 Pulse Rate 91 09/28/23 13:31 Respiratory Rate 16 09/28/23 13:31 Blood Pressure 115/69 09/28/23 13:31 Pulse Oximetry 94 09/28/23 13:31 Oxygen Delivery Room Air 09/28/23 13:31 Discharge Plan Discharge Clinical Impression: Cellulitis Patient Disposition: Home, Self-Care Condition: Stable Instructions: Antibiotic Form, Cellulitis (ED) Additional Instructions: Please call your provider that manages your warfarin. You may be required to have more frequent
== END 2023-09-28 14:10 | disposition home or self-care (01) ==
PROVIDERS: Emergency Provider Nurse Practitioner Family; PCP Emergency Medicine
DX: L03.211 Cellulitis of face (principal); Z87.891 Personal history of nicotine dependence; J44.9 Chronic obstructive pulmonary disease, unspecified; K74.60 Unspecified cirrhosis of liver; K21.9 Gastro-esophageal reflux disease without esophagitis; M15.9 Polyosteoarthritis, unspecified; Z95.2 Presence of prosthetic heart valve; Z95.0 Presence of cardiac pacemaker; Z79.82 Long term (current) use of aspirin; Z79.01 Long term (current) use of anticoagulants
CPT/HCPCS: 99213; G0463

== ENCOUNTER 2023-12-05 13:01 | Outpatient (CLI) | payer MEDICARE, MEDICAID, SELFPAY ==
--- NOTE | ~2023-12-05 | XR_ITS ---
EXAMINATION: XR lumbar spine 2-3V DATE: 12/05/2023 13:25 INDICATION: Low back pain. TECHNIQUE: 3 views of lumbar spine were obtained. COMPARISON: None. FINDINGS: There is 10 degrees levoscoliosis of thoracolumbar spine. There is 3 mm retrolisthesis of T 11 on T12, T12 on L1, and L1 on L2. Vertebral body heights are normal. There is severely decreased di sc height from T11-T12 through L1-L2, mildly decreased disc height at L4-L5, and severely decreased d isc height at L5-S1. There is multilevel facet joint osteoarthritis, severe in lower lumbar spine. IMPRESSION: 1. Severe lumbar and lower thoracic spondylosis. 2. Thoracolumbar levoscoliosis. Reviewed, dictated and finalized at location A.
== END 2023-12-05 13:02 | disposition home or self-care (01) ==
PROVIDERS: PCP Emergency Medicine; Visit Provider Emergency Medicine
DX: M43.06 Spondylolysis, lumbar region (principal); M43.04 Spondylolysis, thoracic region; M41.85 Other forms of scoliosis, thoracolumbar region
CPT/HCPCS: 72100

== ENCOUNTER 2024-01-31 09:29 | Outpatient (CLI) | payer MEDICARE, MEDICAID, SELFPAY ==
--- NOTE | ~2024-01-31 | US_ITS ---
Limited Abdominal Sonogram: Real-time sonographic imaging of the right upper quadrant was performed. Clinical History: Cirrhosis of liver Findings: The liver demonstrates nodular contour, without focal mass or biliary dilatation. Main por spike vein demonstrates normal direction of flow. The gallbladder is partially distended, with probable layering gallstone. No gallbladder wall thickening. The common bile duct measures 3 mm. The visuali zed pancreas, aorta, and IVC are unremarkable. Impression: Cirrhotic morphology of the liver. No focal mass or biliary dilatation seen. Cholelithiasis. Reviewed, dictated and finalized at location . Impression: Cirrhotic morphology of the liver. No focal mass or biliary dilatation seen. Cholelithiasis.
[2024-01-31 10:44] LABS: Alanine Aminotransferase 20 U/L (6-50); Albumin Level 4.5 g/dL (3.5-5.1); Alkaline Phosphatase 91 U/L (38-126); Anion Gap 10 mmol/L (4-12); Aspartate Amino Transferase 24 U/L (17-59); Bilirubin,Total 0.8 mg/dL (0.2-1.3); Blood Urea Nitrogen 14 mg/dL (9-20); Calcium 9.3 mg/dL (8.4-10.2); Carbon Dioxide 28 mmol/L (22-30); Chloride 100 mmol/L (98-107); Estimated Glomerular Filt Rate > 60; Glucose 120 mg/dL (65-110); Potassium 4.2 mmol/L (3.4-5.0); Sodium 138 mmol/L (137-145)
== END 2024-01-31 09:30 | disposition home or self-care (01) ==
PROVIDERS: PCP Emergency Medicine; Visit Provider Internal Medicine Gastroenterology
DX: E78.5 Hyperlipidemia, unspecified (principal); K74.60 Unspecified cirrhosis of liver; K80.20 Calculus of gallbladder without cholecystitis without obstruction
CPT/HCPCS: 36415; 76705; 80053

== ENCOUNTER 2024-08-31 10:31 | Outpatient (CLI) | payer MEDICARE, SELFPAY ==
--- NOTE | ~2024-08-31 | US_ITS ---
Limited Abdominal Sonogram: Real-time sonographic imaging of the right upper quadrant was performed. Clinical History: Cirrhosis of liver Findings: The liver demonstrates nodular contour. There is a 2.2 cm hypoechoic left hepatic lobe mas s. No intrahepatic biliary dilatation. Main portal vein demonstrates normal direction of flow. The ga llbladder is well distended, and demonstrates echogenic, shadowing gallstone. No gallbladder wall thi ckening. The common bile duct measures 5 mm. The visualized pancreas, aorta, and IVC are unremarkabl e. Impression: 2.2 cm hypoechoic suspected hepatic mass versus possibly focal fatty sparing. Pre and postcontrast MR recommended for further evaluation. Suggestion of nodular contour of the liver, which could reflect cirrhosis. Cholelithiasis. Reviewed, dictated and finalized at location M. Impression: 2.2 cm hypoechoic suspected hepatic mass versus possibly focal fatty sparing. P re and postcontrast MR recommended for further evaluation. Suggestion of nodular contour of the liver, which could reflect cirrhosis. Cholelithiasis.
== END 2024-08-31 10:32 | disposition home or self-care (01) ==
LOC: MICIMG 10:33
PROVIDERS: PCP Emergency Medicine; Visit Provider Internal Medicine Gastroenterology
DX: K74.60 Unspecified cirrhosis of liver (principal); B18.1 Chronic viral hepatitis B without delta-agent; K80.20 Calculus of gallbladder without cholecystitis without obstruction
CPT/HCPCS: 76705

== ENCOUNTER 2024-09-04 11:47 | Emergency (ER) | payer MEDICARE, SELFPAY ==
--- OUTSIDE RECORDS SUMMARY | 2024-09-04 11:49 | XMS_ITS | CONTINUITY OF CARE DOCUMENT ---
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 active Blanca Sandra RN Shortness of breath active Vijay Acosta TR s/p bioprosthetic valve r eplacement 09/2018 active Ariel Christopherte Endocarditis, tricuspid active Vijay silveira MD History of pulmonary embolus active Abby Chavira MD Tobacco abuse active Ariel Kyte Hepatic cirrhosis active Ariel Kyte Atrial flutter s/p JEFFY/CV active Ariel Kyte 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 Ariel Kyte COPD active Ariel Kyte Complete heart block s/p Med tronic DC PPM active Ariel Kyte Hypertension active Vijay Chavira MD Leg Edema active Vijay Chavira MD Headaches active Vijay Chavira MD LUCY active Marlene Ventimiglia REED WORKER Ascites active Vijay Chavira MD Cardiology examination active Paul Colindreszai Cellulitis active Marlene Ventimiglia REED WORKER ENCOUNTERS Date Type Provider Location Encounter Diag nosis - In-person encounter Office Visit Marlene Leeglia REED WORKER [facility] Cellulitis - In-person encounter Office Visit Vijay Chavira MD [facility] Cardiology examination - In-person encounter Office Visit Vijay Chavira MD [facility] - In-person encounter Office Visit Vijay Chavira MD [facility] - In-person encounter Office Visit Vijay Chavira MD [facility] - In-person encounter Office Visit Vijay Chavira MD [facility] - In-person encounter Office Visit Vijay Chavira MD [facility] - In-person encounter Office Visit Vijay Chavira MD [facility] Ascites - In-person encounter Office Visit Darren Hartmann MD [facility] LUCY - In-person encounter Office Visit Vijay Chavira MD [facility] HypertensionLeg EdemaHeadaches - In-person encounter Office Visit Bhargav Rich MD [facility] - In-person encounter Office Visit Bhargav Rich MD [facility] - In-person encounter Office Visit Vijay Chavira MD [facility] - In-person encounter Office Visit Vijay Chavira MD [facility] - In-person encounter Office Visit Vijay Chavira MD [facility] TR s/p bioprosthetic valve replacement 09/2018Tobacco abuseHepatic cirrhosisAtrial flutter s/p JEFFY/CVHeparin-induced thrombocytopenia [HIT]COPDComplete heart block s/p Medtronic DC PPM - In-person encounter Office Visit Vijay Chavira MD [facility] Shortness of breathTR s/p bioprosthetic valve replacement 09/2018Endocarditis, tricuspidHistory of pulmonary embolus VITAL SIGNS Date Observation Value Provider Body Mass Index (Ratio) 30.86 kg/m2 Stephen noe Cranmer blood pressure, cuff size regular Ke rri Adriano blood pressure, diastolic 94 mm[Hg] Ke rri Monsterchi [facility] blood pressure, systolic 149 mm[Hg] Alex ri Adriano oxygen saturation, oximetry 93 % Dejah Adriano pulse rate 90 /min Dejah Monsterines [facility] weight E&M 203 [lb_av] Dejah Olegmelbaines [facility] height E&M 68 [in_i] Dejah Cathleen [facility] Body Mass Index (Ratio) 30.86 kg/m2 Paul Quintero blood pressure, diastolic 90 mm[Hg] Amarilys erwinruslanmónica Rodriges blood pressure, systolic 132 mm[Hg] Agnieszka ruslanmónica Rodriges oxygen saturation, oximetry 92 % Lillymónica Rodriges pulse rate 84 /min Lillymónica Rodriges respiratory rate E&M 12 /min Lillymónica Rodriges weight E&M 203 [lb_av] Lillymónica Rodriges height E&M 68 [in_i] Lilly Rodriges blood pressure, cuff size regular An yaimaruslanmónica Rodriges Body Mass Index (Ratio) 30.10 kg/m2 Francia Chavira MD blood pressure, cuff size regular Ja rret blood pressure, diastolic 77 mm[Hg] Ja rret blood pressure, systolic 130 mm[Hg] Ranjith ret pulse rate 82 /min oxygen saturation, oximetry 93 % Manuel respiratory rate E&M 16 /min Manuel weight E&M 198 [lb_av] Manuel y height E&M 68 [in_i] [facility] y Body Mass Index (Ratio) 30.71 kg/m2 Francia Chavira MD blood pressure, diastolic 84 mm[Hg] Ebony nkLogic blood pressure, systolic 136 mm[Hg] Kell kLog blood pressure, diastolic 84 mm[Hg] Caro wade [place] blood pressure, systolic 136 mm[Hg] [facility] carmen [place] oxygen saturation, oximetry 94 % Leeann Valladares pulse rate 90 /min Leeann acosta weight E&M 202 [lb_av] Leeann acosta height E&M 68 [in_i] Leeann acosta respiratory rate E&M 16 /min Ester Valladares blood pressure, cuff size large Caro olvera Valladares Body Mass Index (Ratio) 29.34 kg/m2 Paul Quintero blood pressure, diastolic 85 mm[Hg] Li nkLogic blood pressure, systolic 135 mm[Hg] Kell kLogic blood pressure, cuff size regular Sh logan Don blood pressure, diastolic 85 mm[Hg] Sh logan Don blood pressure, systolic 135 mm[Hg] She rrnancy Don oxygen saturation, oximetry 95 % Georgia Don pulse rate 92 /min Georgia Don respiratory rate E&M 20 /min Georgia Don weight E&M 193 [lb_av] Georgia Don height E&M 68 [in_i] Georgia Don Body Mass Index (Ratio) 29.56 kg/m2 Francia Chavira MD blood pressure, diastolic 93 mm[Hg] Ebony nkLogantoinette blood pressure, systolic 142 mm[Hg] Kell Camachoogantoinette blood pressure, diastolic 93 mm[Hg] St adwoa Weber blood pressure, systolic 142 mm[Hg] Sta sebas Weber oxygen saturation, oximetry 96 % Kayleesebas Weber pulse rate 89 /min Kayleesebas Weber respiratory rate E&M 16 /min Kaylee solano weight E&M 194.4 [lb_av] Kaylee Gus height E&M 68 [in_i] Kayleesebas Weber Body Mass Index (Ratio) 30.56 kg/m2 Winifred kenia Antonia blood pressure, diastolic 85 mm[Hg] Ri wade Nelsonerson blood pressure, systolic 131 mm[Hg] Dimitri carmen Ruffin blood pressure, cuff size large Ri wade Nelsonerson oxygen saturation, oximetry 95 % Samreen Ruffin respiratory rate E&M 16 /min Bishnu chacon Ruffin pulse rate 80 /min Samreen Vyas son weight E&M 201 [lb_av] Samreen Vyas son height E&M 68 [in_i] Samreen Vyas son Body Mass Index (Ratio) 30.44 kg/m2 Jonny Hartmann MD blood pressure, diastolic 100 mm[Hg] Ebony maLogantoinette blood pressure, systolic 153 mm[Hg] Kell ogic blood pressure, diastolic 72 mm[Hg] Am travis Ventimiglia REED WORKER blood pressure, systolic 136 mm[Hg] Rogers nda Ventimiglia REED WORKER respiratory rate E&M 16 /min Kaylee Acosta russ oxygen saturation, oximetry 96 % Kaylee Weber pulse rate 91 /min Kaylee Weber weight E&M 200.2 [lb_av] Kaylee Gus height E&M 68 [in_i] Kaylee Gus Body Mass Index (Ratio) 29.80 kg/m2 Prasanna Wick blood pressure, diastolic 93 mm[Hg] Ebony nkLogic blood pressure, systolic 158 mm[Hg] Kell kLogic blood pressure, diastolic 93 mm[Hg] Ca therine Asad blood pressure, systolic 158 mm[Hg] Cat herine [place] oxygen saturation, oximetry 96 % Layla [place] respiratory rate E&M 16 /min Catheri ne [place] pulse rate 59 /min Layla [place] weight E&M 196 [lb_av] Layla Asad blood pressure, cuff size regular Ca therine [place] height E&M 68 [in_i] Layla Asad Body Mass Index (Ratio) 29.65 kg/m2 Albertina Rich MD blood pressure, diastolic 80 mm[Hg] Li nkLogic blood pressure, systolic 129 mm[Hg] Kell kLogic blood pressure, diastolic 80 mm[Hg] Sa ra Brown blood pressure, systolic 129 mm[Hg] Greyson a Brown oxygen saturation, oximetry 95 % Alyssa Brown respiratory rate E&M 17 /min Alyssa Si ms pulse rate 91 /min Alyssa Brown weight E&M 195 [lb_av] Alyssa Brown blood pressure, cuff size regular Sa ra Brown height E&M 68 [in_i] Alyssa Brown Body Mass Index (Ratio) 30.10 kg/m2 Albertina Rich MD blood pressure, cuff size large Ke rri Gruenenfelder blood pressure, diastolic 72 mm[Hg] Ke rri Gruenenfelder blood pressure, systolic 126 mm[Hg] Ker ri Monikanenfelder oxygen saturation, oximetry 96 % Dejah Monsterelder respiratory rate E&M 18 /min Dejah G narayaneneestherelder pulse rate 84 /min Dejah Grfernandonenfe lder weight E&M 198 [lb_av] Dejah Gruenenfe lder height E&M 68 [in_i] Dejah Gruenenfe lder Body Mass Index (Ratio) 28.43 kg/m2 Francia Chavira MD blood pressure, diastolic 80 mm[Hg] Ebony nkLogic blood pressure, systolic 138 mm[Hg] Kell kLogic blood pressure, cuff size regular Cy ntlaith Hussein blood pressure, diastolic 80 mm[Hg] Cy nthia Keenan blood pressure, systolic 138 mm[Hg] Lanie marge Hussein oxygen saturation, oximetry 94 % Lesli Hussein respiratory rate E&M 16 /min Lesli Hussein pulse rate 60 /min Lesli Porterbel l weight E&M 187 [lb_av] Lesli Campbel l height E&M 68 [in_i] Lesli Campbel l Body Mass Index (Ratio) 26.30 kg/m2 Harley n Kyte blood pressure, cuff size regular Ke rri Gruenenfelder blood pressure, diastolic 100 mm[Hg] Ke rri Gruenenfelder blood pressure, systolic 152 mm[Hg] Ker ri Gruenenfelder oxygen saturation, oximetry 96 % Dejah Gruenenfelder respiratory rate E&M 16 /min Dejah G ruenenfelder pulse rate 83 /min Dejah Gruenenfe lder weight E&M 173 [lb_av] Dejah Gruenenfe lder height E&M 68 [in_i] Dejah Gruenenfe er Body Mass Index (Ratio) 25.39 kg/m2 Harley n Kyte blood pressure, cuff size large Ke rri Gruenenfelder blood pressure, diastolic 66 mm[Hg] Ke rri Gruenenfelder blood pressure, systolic 92 mm[Hg] Ker ri Gruenenfelder oxygen saturation, oximetry 97 % Dejah Gruenenfelder respiratory rate E&M 16 /min Dejah G ruenenfelder pulse rate 109 /min Dejah Gruenenfe lder weight E&M 167 [lb_av] Dejah Gruenenfe lder height E&M 68 [in_i] Dejah Gruenenfe er Body Mass Index (Ratio) 21.44 kg/m2 Viet Ortiz blood pressure, cuff size regular Ke rri Gruenenfelder blood pressure, diastolic 96 mm[Hg] Ke rri Gruenenfelder blood pressure, systolic 141 mm[Hg] Ker ri Gruenenfelder oxygen saturation, oximetry 98 % Dejah Gruenenfelder respiratory rate E&M 22 /min Dejah khanrisajosh pulse rate 102 /min Dejah Connolly lder weight E&M 141 [lb_av] Dejah Connolly lder height E&M 68 [in_i] Dejah Connolly lder ALLERGIES Allergy Name Onset Date Reaction Criticality Status TYLENOL High Criticality active RESULTS Date Observation Value Provider Reference Range Interpretation Location coagulation managed by Elia Hunter RN international normalized ratio (INR) 2.9 Elia Hunter RN Normal prothrombin time (patient) 35.0 s Elia Hunter RN coagulation managed by Elia Mcknights JOSEF international normalized ratio (INR) 2.2 Elia Hunter RN Normal prothrombin time (patient) 26.0 s Elia Hunter RN coagulation managed by Elia Mcknights RN international normalized ratio (INR) 3.5 Elia Hunter RN Normal prothrombin time (patient) 42.4 s Elia Hunter RN coagulation managed by Elia Hunter RN international normalized ratio (INR) 2.9 Elia Hunter RN Normal prothrombin time (patient) 35.2 s Elia Hunter RN international normalized ratio (INR) 2.5 Yenifer Lira Normal coagulation managed by Yenifer Lira coagulation managed by Elia Hunter RN international normalized ratio (INR) 2.8 Elia Hunter RN Normal prothrombin time (patient) 33.2 s Elia Hunter RN coagulation managed by Elia Hunter RN international normalized ratio (INR) 2.0 Elia Hunter RN Normal prothrombin time (patient) 24.3 s Elia Hunter RN coagulation managed by Elia Hunter RN Elia Mcknights RN international normalized ratio (INR) 4.0 Elia Hunter RN Normal prothrombin time (patient) 48.5 s Elia Hunter RN coagulation managed by Elia Hunter RN Elia Mcknights RN international normalized ratio (INR) 3.3 Elia Hunter RN Normal prothrombin time (patient) 39.3 s Elia Hunter RN coagulation managed by Blanca Sandra RN international normalized ratio (INR) 3.4 Blanca Sandra RN Normal coagulation managed by Elia Hunter RN international normalized ratio (INR) 4.2 Elia Hunter RN Normal prothrombin time (patient) 50.8 s Elia Hunter RN international normalized ratio (INR) 3.1 Marlene Jj RN Normal coagulation managed by JOSEF Valentin RN coagulation managed by Elia Hunter RN international normalized ratio (INR) 1.9 Elia Hunter RN Normal prothrombin time (patient) 23.2 s Elia Hunter RN coagulation managed by Elia Hunter RN international normalized ratio (INR) 2.2 Elia Hunter RN Normal prothrombin time (patient) 26.8 s Elia Hunter RN coagulation managed by Elia Mcknights RN international normalized ratio (INR) 2.3 Elia Hunter RN Normal prothrombin time (patient) 27.5 s Elia Hunter RN coagulation managed by Elia Hunter RN international normalized ratio (INR) 2.7 Elia Hunter RN Normal prothrombin time (patient) 32.9 s Elia Hunter RN coagulation managed by Elia Hunter RN international normalized ratio (INR) 1.9 Elia Hunter RN Normal prothrombin time (patient) 23.3 s Elia Hunter RN coagulation managed by Elia Hunter RN Elia Hunter RN international normalized ratio (INR) 3.1 Elia Hunter RN Normal prothrombin time (patient) 37.2 s Elia Hunter RN coagulation managed by Elia Hunter RN Elia Hunter RN international normalized ratio (INR) 2.4 Elia Hunter RN Normal prothrombin time (patient) 29.4 s Elia Hunter RN coagulation managed by Elia Hunter RN Elia Hunter RN international normalized ratio (INR) 3.1 Elia Hunter RN Normal prothrombin time (patient) 36.8 s Elia Hunter RN coagulation managed by Elia Hunter RN Elia Hunter RN international normalized ratio (INR) 2.4 Elia Hunter RN Normal prothrombin time (patient) 28.4 s Elia Hunter RN coagulation managed by Elia Hunter RN Elia Hunter RN international normalized ratio (INR) 3.7 Elia Hunter RN Normal prothrombin time (patient) 44.2 s Elia Hunter RN coagulation managed by Elia Hunter RN Elia Hunter RN international normalized ratio (INR) 2.7 Elia Hunter RN Normal prothrombin time (patient) 32.6 s Elia Hunter RN coagulation managed by Elia Hunter RN Elia Hunter RN international normalized ratio (INR) 3.7 Elia Hunter RN Normal prothrombin time (patient) 44.8 s Elia Hunter RN coagulation managed by Elia Hunter RN Elia Hunter RN international normalized ratio (INR) 3.5 Elia Hunter RN Normal prothrombin time (patient) 41.7 s Elia Hunter RN international normalized ratio (INR) 3.1 Dejah Oh Normal prothrombin time (patient) 37.8 s Dejah Oh coagulation managed by Blanca Sandra RN international normalized ratio (INR) 3.1 Blanca Sandra RN Normal prothrombin time (patient) 36.8 s Blanca Sandra RN coagulation managed by Elia Hunter RN international normalized ratio (INR) 3.7 Elia Hunter RN Normal prothrombin time (patient) 43.9 s Elia Hunter RN international normalized ratio (INR) 2.0 Yeniferantoine Lira Normal coagulation managed by Yenifer Lira RN Yenifersaima Lira coagulation managed by Elia Hunter RN international normalized ratio (INR) 5.9 Elia Hunter RN Normal prothrombin time (patient) 70.9 s Elia Hunter RN coagulation managed by Elia Hunter RN international normalized ratio (INR) 3.1 Elia Hunter RN Normal prothrombin time (patient) 36.9 s Elia Hunter RN coagulation managed by Blanca Sandra RN prothrombin time (patient) 32.3 s Blanca Sandra RN international normalized ratio (INR) 2.7 Blanca Sandra RN Normal coagulation managed by Elia Hunter RN international normalized ratio (INR) 2.6 Elia Hunter RN Normal prothrombin time (patient) 30.7 s Elia Hunter RN coagulation managed by Elia Hunter RN international normalized ratio (INR) 2.8 Elia Hunter RN Normal prothrombin time (patient) 33.1 s Elia Hunter RN coagulation managed by Blanca Sandra RN international normalized ratio (INR) 2.6 Blanca Sandra RN Normal coagulation managed by Blanca Sandra RN international normalized ratio (INR) 2.4 Blanca Sandra RN Normal coagulation managed by Elia Hunter RN international normalized ratio (INR) 2.9 Elia Hunter RN Normal prothrombin time (patient) 34.4 s Elia Hunter RN coagulation managed by Elia Hunter RN Elia Hunter RN international normalized ratio (INR) 4.7 Elia Hunter RN Normal prothrombin time (patient) 56.6 s Elia Hunter RN coagulation managed by Blanca Sandra RN international normalized ratio (INR) 2.4 Blanca Sandra RN Normal prothrombin time (patient) 28.2 s Blanca Sandra RN coagulation managed by Blanca Sandra RN international normalized ratio (INR) 4.9 Blanca Sandra RN Normal prothrombin time (patient) 58.6 s Blanca Sandra RN coagulation managed by Blanca Sandra RN international normalized ratio (INR) 2.9 Blanca Sandra RN Normal prothrombin time (patient) 34.5 s Blanca Sandra RN coagulation managed by Blanca Sandra RN international normalized ratio (INR) 2.5 Blanca Sandra RN Normal coagulation managed by Elia Hunter RN international normalized ratio (INR) 4.7 Elia Hunter RN Normal prothrombin time (patient) 56.0 s Elia Hunter RN coagulation managed by Elia Hunter RN international normalized ratio (INR) 2.9 Elia Hunter RN Normal coagulation managed by Blanca Sandra RN international normalized ratio (INR) 2.7 Blanca Sandra RN Normal coagulation managed by Blanca Sandra RN international normalized ratio (INR) 4.6 Blanca Sandra RN Normal prothrombin time (patient) 55.8 s Blanca Sandra RN coagulation managed by Blanca Sandra RN international normalized ratio (INR) 3.0 Blanca Sandra RN Normal prothrombin time (patient) 35.8 s Blanca Sandra RN coagulation managed by Blanca Sandra RN international normalized ratio (INR) 1.6 Blanca Sandra RN Normal prothrombin time (patient) 19.7 s Blanca Sandra RN coagulation managed by Blanca Sandra RN international normalized ratio (INR) 3.0 Blanca Sandra RN Normal prothrombin time (patient) 36.2 s Blanca Sandra RN coagulation managed by Blanca Sandra RN international normalized ratio (INR) 2.6 Blanca Sandra RN Normal prothrombin time (patient) 31.0 s Blanca Sandra RN coagulation managed by Blanca Sandra RN coagulation managed by Blanca Sandra RN international normalized ratio (INR) 2.3 Blanca Sandra RN Normal prothrombin time (patient) 28 s Blanca Sandra RN coagulation managed by Elia Hunter RN international normalized ratio (INR) 1.5 Elia Hunter RN Normal prothrombin time (patient) 18 s Elia Hunter RN coagulation managed by Elia Hunter RN international normalized ratio (INR) 2.3 Elia Hunter RN Normal prothrombin time (patient) 27.8 s Elia Hunter RN coagulation managed by Elia Hunter RN international normalized ratio (INR) 4.0 Elia Hunter RN Normal prothrombin time (patient) 48.5 s Elia Hunter RN coagulation managed by Elia Hunter RN prothrombin time (patient) 23.5 s Elia Hunter RN international normalized ratio (INR) 2.0 Elia Hunter RN Normal coagulation managed by Elia Hunter RN international normalized ratio (INR) 2.6 Elia Hunter RN Normal prothrombin time (patient) 31.6 s Elia Hunter RN coagulation managed by Elia Hunter RN international normalized ratio (INR) 2.5 Elia Hunter RN Normal prothrombin time (patient) 30.4 s Elia Hunter RN coagulation managed by Elia Hunter RN international normalized ratio (INR) 2.1 Elia Hunter RN Normal prothrombin time (patient) 25.5 s Elia Hunter RN coagulation managed by Yenifer Lira international normalized ratio (INR) 5.4 Alyssa Ayalas Normal prothrombin time (patient) 64.5 s Alyssa Brown coagulation managed by Elia Hunter RN international normalized ratio (INR) 2.0 Leeann Valladares Normal prothrombin time (patient) 24.3 s Leeann Valladares coagulation managed by Blanca Sandra RN international normalized ratio (INR) 4.6 Pauline Bonner Normal prothrombin time (patient) 55.7 s Pauline Bonner coagulation managed by Elia Hunter RN prothrombin time (patient) 24.6 s Pauline Bonner international normalized ratio (INR) 2.0 Pauline Bonner Normal coagulation managed by Elia Hunter RN international normalized ratio (INR) 1.1 Elia Hunter RN Normal prothrombin time (patient) 13.5 s Elia Hunter RN coagulation managed by Elia Hunter RN international normalized ratio (INR) 3.4 Lesli Hussein Normal prothrombin time (patient) 40.7 s Lesli Hussein coagulation managed by Elia Hunter RN international normalized ratio (INR) 2.6 Lesli Hussein Normal prothrombin time (patient) 31.6 s Lesli Hussein coagulation managed by Elia Hunter RN international normalized ratio (INR) 1.9 Tim Tam Normal prothrombin time (patient) 23.1 s Tim Tam coagulation managed by Elia Hunter RN international normalized ratio (INR) 1.7 Lesli Hussein Normal prothrombin time (patient) 20.7 s Lesli Hussein coagulation managed by Elia Hunter RN international normalized ratio (INR) 1.8 Elia Hunter RN Normal prothrombin time (patient) 21.7 s Elia Hunter RN coagulation managed by Elia Hunter RN international normalized ratio (INR) 1.9 Elia Hunter RN Normal prothrombin time (patient) 23.4 s Elia Hunter RN coagulation managed by Elia Hunter RN international normalized ratio (INR) 2.3 Leslimarge Hussein Normal prothrombin time (patient) 27.9 s Lesli Hussein coagulation managed by Elia Hunter RN international normalized ratio (INR) 1.6 Dejah Adriano Normal prothrombin time (patient) 19.2 s Dejah Adriano coagulation managed by Elia Hunter RN international normalized ratio (INR) 2.2 Lesli Hussein Normal prothrombin time (patient) 25.9 s Lesli Hussein coagulation managed by Elia Hunter RN international normalized ratio (INR) 3.1 Dejah Grfernandonececier Normal prothrombin time (patient) 37.7 s Dejah Gruenenfelder coagulation managed by Elia Hunter RN international normalized ratio (INR) 1.1 Dejah Oh Normal prothrombin time (patient) 12.6 s Dejah Oh HISTORY OF MEDICATION USE Medication Status Instructions Dates Provider Indications Com ments doxycycline hyclate 100 mg capsule active 1 capsule twice a day Marlene Ventimiglia REED WORKER doxycycline hyclate 100 mg tablet,delayed release (DR/EC) completed 1 tablet by mouth twice a day - Marlene Ventimiglia REED WORKER warfarin 2.5 mg tablet active TAKE 1 TABLET BY MOUTH EVERY EVENING EXCEPT FOR MON and Fri TAKE 2 TABS (5MG) Elia Hunter RN warfarin 2.5 mg tablet completed Take 1 tablet by mouth every evening Except for Mon and Wed take 2 tablets to = 5 mg - Lilly Rodriges warfarin 2.5 mg tablet completed - Elia Hunter RN warfarin 5 mg tablet completed TAKE 1 TABLET BY MOUTH EVERY DAY - Elia Hunter RN warfarin 2.5 mg tablet completed TAKE 1 TABLET BY MOUTH EVERY EVENING EXCEPT ON SATURDAY TAKE 1/2 TAB OF THE 2.5MG - Javier Bolton warfarin 2.5 mg tablet completed TAKE 1 TABLET BY MOUTH ONCE A DAY DIRECTED ON SATURDAY ONLY - Elia Hunter RN warfarin 2.5 mg tablet completed TAKE 1 TABLET BY MOUTH EVERY EVENING EXCEPT ON SATURDAY TAKE 1/2 TAB OF THE 2.5MG - Blanca aSndra RN warfarin 2.5 mg tablet completed Take 1 tablet by mouth every evening - Elia Hunter RN warfarin 5 mg tablet completed TAKE 1 TABLET BY MOUTH EVERY DAY - Elia Hunter RN warfarin 2.5 mg tablet completed one tab daily - Blanca Boaz RN warfarin 2.5 mg tablet completed - Elia Hunter RN warfarin 5 mg tablet completed TAKE 1 TABLET A DAY - Elia Hunter RN warfarin 5 mg tablet completed TAKE 1 TABLET A DAY - Vijay Chavira MD furosemide 40 mg tablet active TAKE 1 TABLET BY MOUTH TWICE A DAY Manuel warfarin 2.5 mg tablet completed Take 1 tablet by mouth every evening - Teresa Kim RN furosemide 40 mg tablet completed Take 1 tablet by mouth twice a day - Leeann Blaine Pt has been told by MT he can take 2 tabs once a day instead 12/13/22 furosemide unspecified unspecified completed Take 2 tablet by mouth once a day - Yenifer Pankaj dose unknown warfarin 2.5 mg tablet completed Take 1 tablet by mouth every evening EXCEPT on Tuesdays take 2 tabs (5mg) - Blanca Sandra RN warfarin 2.5 mg tablet completed TAKE 1 TABLET BY MOUTH EVERY EVENING DIRECTED EXCEPT TU take 5mg - Blanca Sandra RN spironolactone 25 mg tablet active Take 1 tablet by mouth once a day Dejah Oh warfarin 5 mg tablet completed TAKE 1 TABLET BY MOUTH ONCE A DAY DIRECTED 1 TAB ON SATURDAY ONLY - Yenifer Haynesenz warfarin 5 mg tablet completed Take 1 tablet by mouth every evening TAKE 1 TABLET BY MOUTH DAILY ON SATURDAY AND Saturday - Blanca Sandra RN warfarin 5 mg tablet completed TAKE 1 TABLET BY MOUTH DAILY ON SATURDAY AND Saturday - Blanca Sandra RN warfarin 5 mg tablet completed Take 1 tablet by mouth once a day as directed 1 tab on Saturday and . - Ade Peterson RN warfarin 5 mg tablet completed Take 1 tablet by mouth once a day as directed TAKE 1 TABLET BY MOUTH ONCE A DAY EXCEPT ON AND - Blanca Sandra RN warfarin 2.5 mg tablet completed Take 1 tablet by mouth every evening as directed except Tue and Thur. - Blanca Sandra RN furosemide 20 mg tablet completed TAKE 1 TABLET BY MOUTH TWICE A DAY - Blanca Sandra RN warfarin 2.5 mg tablet completed TAKE 1 TABLET BY MOUTH EVERY DAY IN THE EVENING DIRECTED - Teresa Kim RN furosemide 20 mg tablet completed Take 1 tablet by mouth twice a day - Bhargav Rich MD warfarin 2.5 mg tablet completed Take 1 tablet by mouth every evening as directed EXCEPT on Mon-Wed-Fri take 2 tabs = 5mg - Elia Hunter RN Jantoven 2.5 mg tablet completed 1 tablet by mouth once a day as directed Take 1 tab on Tues, Wed, Thurs ONLY - Elia Hunter RN Jantoven 2.5 mg tablet completed Take 1 tab on Tues, Wed, Thurs ONLY - Elia Hunter RN warfarin 5 mg tablet completed Take 1 tablet by mouth once a day on Mon, Fri, Sat, Sun ONLY - Elia Hunter RN warfarin 5 mg tablet completed Take 1 tablet by mouth once a day except on Tues and Thurs take 1/2 tab - Elia Hunter RN warfarin 2.5 mg tablet completed Take 2 tablet by mouth once a day 2 tab daily on Tues, Th, Sat, Sun 1 tab rest of days - Lizett Rosas History of pulmonary embolus #34, 30 days supply, Prescribed by KARL BENSON, Filled 05/19/2020 atorvastatin 80 mg tablet active Take 1 tablet by mouth every night Dejah Oh #90, 90 days supply, Prescribed by ALYSIA BELCHER, Filled 04/12/2020 zolpidem 10 mg tablet completed Take 1 tablet by mouth single dose as needed - Marlene Back REED WORKER #30, 30 days supply, Prescribed by NASREEN KAY, Filled 05/03/2020 aspirin 81 mg tablet,delayed release (/EC) active Take 1 tablet by mouth once a day Dejah Lyoner #30, 30 days supply, Prescribed by ALYSIA BELCHER, Filled 05/03/2020 albuterol sulfate 90 mcg/actuation HFA aerosol inhaler active Inhale 1 puff every four to six hours as needed Dejah Lyoner #8.5, 16 days supply, Prescribed by NASREEN KAY, Filled 05/03/2020 warfarin 2.5 mg tablet completed Take 2 tab daily on , , Sat, Sun 1 tab rest of days - Lizett Rosas History of pulmonary embolus #34, 30 days supply, Prescribed by KARL BENSON, Filled 05/19/2020 Symbicort 160-4.5 mcg/actuation HFA aerosol inhaler active as directed Dejah Lyoner #10.2, 30 days supply, Prescribed by NASREEN KAY, Filled 05/21/2020 POTASSIUM CHLORIDE BRIAN ER 20 MEQ ORAL TABLET EXTENDED RELEASE completed Take two tablets daily - Dejah Oh FUROSEMIDE 40 MG ORAL TABLET completed Take one and a half tablets twice daily - Dejah Oh AMOXICILLIN 875 MG ORAL TABLET completed take one pill twice a day - Dejah Adriano tramadol 50 mg tablet active Take 1 by mouth as needed Dejah Oh PANTOPRAZOLE SODIUM completed once a day - Dejah Camroner XARELTO 20 MG ORAL TABLET completed One tab. daily with evening meal - Dejah Oh COUMADIN 5 MG ORAL TABLET completed Take one tablet daily. will start on saturday - Vijay Chavira MD Replace Xarelto XARELTO 20 MG ORAL TABLET completed One tab daily with evening meal - Ju Cervantes RN XARELTO STARTER PACK 15 & 20 MG ORAL TABLET THERAPY PACK completed 15mg BID with meals x 21 days then 20mg daily - Tammie Piedra RN hospital discharge SOCIAL HISTORY Date Observation Value Provider personal history of marijuana use no Marlene Ventimiglia REED WORKER drug use no Marlene Ventimig mary REED WORKER alcohol use no Marlene Ventimig mary REED WORKER smoking, year quit 2020 Marlene Ve ntimiglia [facility] number of years as a smoker 30 a Marlene Ventimiglia [facility] smoking history, tot al pack/day 1/2 ppd Marlene Ventimiglia [facility] cigarette use yes Marlene Ventimi glia REED WORKER smoking status Former smoker Marlenetravis Qiu miglia REED WORKER smoking, year quit 2020 Brandee N alluri CAREER DEVELOPMENT COUNSELOR number of years as a smoker 30 a Brandee Nalluri CAREER DEVELOPMENT COUNSELOR smoking history, tot al pack/day 1/2 ppd Brandee Nalluri CAREER DEVELOPMENT COUNSELOR cigarette use yes Brandee Nallur i CAREER DEVELOPMENT COUNSELOR smoking status Former smoker Brandee Karime uri CAREER DEVELOPMENT COUNSELOR smoking, year quit 2020 Vijay Chavira MD number of years as a smoker 30 a Vijay Chavira MD smoking history, tot al pack/day 1/2 ppd Vijay Chavira MD cigarette use yes Vijay Chavira MD smoking status Former smoker Vijay silveira MD smoking, year quit 2020 Vijay Chavira MD number of years as a smoker 30 a Vijay Chavira MD smoking history, tot al pack/day 1/2 ppd Vijay Chavira MD cigarette use yes Vijay Chavira MD smoking status Former smoker Vijay silveira MD social history reviewed E&M revi ewed - no changes required Vijay Chavira MD social history E&M S moking History: P atient is a former smoker. Vijay Chavira MD smoking, year quit 2020 Leeann Valladares number of years as a smoker 30 a Leeann Valladares smoking history, tot al pack/day 1/2 ppd Leeann Valladares cigarette use yes Leeann Alcocer buster smoking status Former smoker Leeann okeefe social history E&M S moking History: P atient is a former smoker. Vijay Chavira MD social history reviewed E&M revi ewed - no changes required Vijay Chavira MD smoking, year quit 2020 Georgia Antwon davis cigarette use yes Georgia Florencia smoking status Former smoker Georgia Espanasavita salas social history E&M S moking History: P atguero is a former smoker. Vijay Chavira MD social history reviewed E&M revi ewed - no changes required Vijay Chavira MD smoking, year quit 2020 Kayleesebas Jernigan is number of years as a smoker 30 a Kaylee Weber smoking history, tot al pack/day 1/2 ppd Kaylee Weber cigarette use yes Kaylee Weber smoking status Former smoker Kaylee Weber social history E&M S moking History: P atient is a former smoker. Vijay Chavira MD social history reviewed E&M revi ewed - no changes required Vijay Chavira MD smoking, year quit 2020 Samreen Ruffin number of years as a smoker 30 a Samreen Ruffin smoking history, tot al pack/day 1/2 ppd Samreen Ruffin cigarette use yes Samreen mullins smoking status Former smoker Samreen kerr social history E&M S moking History: Milvia preciado is a former smoker. Vijay Chavira MD social history reviewed E&M revi ewed - no changes required Vijay Chavira MD smoking, year quit 2020 Layla Asad number of years as a smoker 30 a Layla Plymouth smoking history, tot al pack/day 1/2 ppd Layla Plymouth cigarette use yes Layla Plymouth smoking status Former smoker Layla Ot is social history reviewed E&M revi ewed - no changes required Bhargav Rich MD social history E&M S moking History: Milvia preciado is a former smoker. Bhargav Rich MD smoking, year quit 2020 Dejah Noah childress number of years as a smoker 30 a Dejah Camroner smoking history, tot al pack/day 1/2 ppd Dejah Lyoner cigarette use yes Dejah Monster gaston smoking status Former smoker Dejah Poon estherelder social history reviewed E&M revi ewed - no changes required Vijay Chavira MD social history E&M S moking History: Milvia preciado is a former smoker. Vijay Chavira MD smoking, year quit 2020 Lesli hearn number of years as a smoker 30 a Lesli Hussein smoking history, tot al pack/day 1/2 ppd Lesli Hussein cigarette use yes Lesli hein smoking status Former smoker Lesli mullins social history E&M S moking History: Milvia preciado is a former smoker. Vijay Chavira MD social history reviewed E&M revi ewed - no changes required Vijay Chavira MD smoking, year quit 2020 Dejah Zamora fior number of years as a smoker 30 a Dejah Lyoner smoking history, tot al pack/day 1/2 ppd Dejah Lyoner cigarette use yes Dejah gaston smoking status Former smoker Dejah santanaalek social history E&M S moking History: Milvia preciado currently smokes every day. Milvia preciado has been counseled to quit. Vijay Chavira MD social history reviewed E&M revi ewed - no changes required Vijay Chavira MD smoking/tobacco cess ation, patient education and counseling yes Vijay Chavira MD smoking, year quit 2016 Dejah Zamora fior number of years as a smoker 30 a Dejah Oh smoking history, tot al pack/day 1/2 ppd Dejah Hookalek cigarette use yes Dejah gaston smoking status Current every da y smoker Vijay Chavira MD social history reviewed E&M revi ewed - no changes required Laura Ortiz number of grandchildren Vijay Chavira MD number of years as a smoker 30 a Dejah Oh smoking history, tot al pack/day 1/2 ppd Dejah Hookrisaer smoking, year quit 2016 Dejah armendarizdawson cigarette use yes Dejah Hook elder smoking status Former smoker Dejah Poon nfelder FAMILY HISTORY Family Member Condition Father Negative FH of Coron laly Artery Disease Mother Negative FH of Coron laly Artery Disease INSURANCE PROVIDERS Payer name Policy type / Coverage type [employer] party ID [facility] Other [facility] Other [id number] (PPO C-SNP) Commercial insurance company [id number] [employer] (2) Medicaid [id number] ADVANCE DIRECTIVES Name Date DISCUSSED - NO DECISION MADE TREATMENT PLAN Date Name Performer [id number],C,B lood pressure control is satisfactory. BP today: 136/84 P rior BP: 135/85 (07/18/2022) His updated medication list for this problem includes: Spironolactone 25 Mg Tablet (Spironolactone) ..... Take 1 tablet by mouth once a day Aspirin 81 Mg Tablet,delayed Release (dr/ec) (Aspirin) ..... Take 1 tablet by mouth once a day Vijay Chavira MD [id number],C,L eg swelling persists. Continues on Lasix. Vijay Chavira MD [id number],C,S OB persists. Continues on Symbicort and Albuterol. Vijay Chavira MD [id number],C,S OB likely related to ascites which is causing signfigant symptoms of SOB. He needs to have perecentesis of abdomen to relieve some disension. He has appt to see GI. He continues on diuretics lasix and spirionolactone. Vijay Chavira MD [id number],C,N ormal appearing bioprosthetic valve and EF on ECHO 01/2022 Vijay Chavira MD [id number],C,0 12/02/2022 Remote transmission shows AT/AF [place]: 11.1%. % Pacing: RA - 40.01% RV - 99.57% LV - 99.47%. BiV - 99.9% Vijay Chavira MD [id number],C, B P today: 135/85 P rior BP: 142/93 (03/14/2022) Vijay Chavira MD [id number],C, N ormal appearing bioprosthetic valve on echo 01/2022, normal EF Vijay Chavira MD [id number],S, Vijay silveira MD [id number],C, O n coumadin. 100% AF burden on recent device interrogation. Vijay Chavira MD [id number],C,U nderwent GI work up which was not significant for anything acute per his report Vijay Chavira MD [id number],C, S mokes one cigarette a day T he Patient was reencouraged to stop smoking. Vijay Chavira MD [id number],C, B P elevated today at 142/93. Advised reduced sodium intake and routine monitoring of the blood pressure. We aim for less than 130/80. Vijay Chavira MD [id number],B, I mproved Vijay Chavira MD [id number],S, N ormal appearing bioprosthetic valve on echo 05/2020. Will continue routine monitoring. Vijay Chavira MD [id number],C,A bdominal ultrasound showed Nodular hepatic contour and homogeneous echotexture consistent with cirrhosis. N o evidence of ascites. Will refer him to GI specialist for further workup Vijay Chavira MD [id number],S,See above Ana Maria Knight [id number],C, S mokes one cigarette a day T he Patient was reencouraged to stop smoking. Tabby Knight [id number],C,B lood pressure control is satisfactory. Tabby Knight [id number],S, Vijay silveira MD [id number],C,C linically he seems to have ascites which is a cause of his SOB and weight gain, I have addded spirionlactone 25 mg to his diuretics, and u/s of the abdomen to be done, likely he would benefit from paracentesis. Vijay Chavira MD [id number],C,B P controlled. Continues medications. Marlene Lazarusmiglia [facility] [id number],C, M ild leg swellling, continue Lasix. Check BMP and proBNP and f[facility] [id number],C, S OB, worsening over last twoo weeks. Pt visibly SOB at visit today with decreased breath sounds, O2 sat normal on room air, we will do chest Xray, echo, labs, and f/u post testing. Pt instructed should his symptoms worsen, he shoudl go to ER. [place] [facility] [id number],C, P t has sleep apnea but is still waiting for a CPAP [facility] [id number],C,Smokes one ci garette a day [facility] [id number],S, P ersists. Will have him stop lasix. Vijay Chavira MD [id number],S, N ormal appearing bioprosthetic valve on echo 05/2020. Will continue routine monitoring. Vijay Chavira MD [id number],W, E levated today. Advised dietary sodium restriction and routine home monitoring. Vijay Chavira MD [id number],B, A s there's isn't any swelling on exam today, will have him discontinue lasix. Vijay Chavira MD [id number],S, P er patient he has quit smoking. Vijay Chavira MD [id number],S, O n coumadin. 100% AF burden on recent device interrogation. Vijay Chavira MD [id number],S, D enies symptoms. Continues on coumadin. Vijay Chavira MD [id number],S, H asn't been taking lasix. Started him on lasix 20mg bid until he sees takelly in 2 weeks. EF 55 on echo. High sodium intake in diet. Gross indiscretion. May 31, 2021 Says he had headaceh after taking lasix, however has diuresed. Has reduced Na intake. He will try taking lasix once daily see if he can tolerate. Will have him come back and see vibha and see if there are any other recommendations Bhargav Rich MD [id number],C,H asn't been taking lasix. Started him on lasix 20mg bid until he sees bandar in 2 weeks. EF 55 on echo. High sodium intake in diet. Gross indiscretion. Bhargav Rich MD [id number],C,On coumadin S bernabe Rich MD [id number],C, D enies symptoms. On Xarelto. His insurance has refused the Xarelto and he will likely be placed on Coumadin. Bhargav Rich MD [id number],C,E cho results from 05/2020 CONCLUSIONS: T echnically difficult study. Abnormal septal motion consistent with pacemaker or ICD implant . Normal left ventricular size a nd systolic function. E to A wave reversal consistent with impaired LV relaxation. Left ventricular ejection fraction is m easured at 55 %. Mild to moderate mitral valve regurgitation. 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 The valve was not well visualized. Peak systolic velocity 2.11 m /s, peak gradient 17.9 mmHg, mean gradient 10.4 mmHg, TV VTI 93.0 cm. IVC is dilated with partial respiratory response, c onsistent with moderately elevated right atrial pressures. The RA pressure is estimated at 10.0 mmHg. Vijay Chavira MD [id number],C,notes no new sxs. Vijay Chavira MD [id number],C,E KG today shows flutter, paced. Vijay Chavira MD [id number],S, P aced on EKG. Remote transmission shows AT/AF [place]: 11.1% % Pacing: RA - 40.01% RV - 99.57% LV - 99.47% B iV - 99.9% Vijay Chavira MD Cardiology:patient p resents with blistering lesion concern for cellulitis as erythema, warmth and pain p atient denies any fever, chills, nausea, vomting or diarrhea W ill begin antibiotic therapy H e will return in am for recheck given history of mechanical valve H is PCP is unable to see until Saturday. D iscussed wtih patient should he develop any fever or chills, increasing pain or erythema to go to ER w ill check labs as well Marlene Back REED WORKER Cardiology: S OB persists. Continues on Symbicort and Albuterol. Brandee Nalluri CAREER DEVELOPMENT COUNSELOR Cardiology: O n coumadin. 100% AF burden on recent device interrogation. Brandee Nalluri CAREER DEVELOPMENT COUNSELOR Cardiology: B P today: 132/90 P rior BP: 130/77 (09/18/2023) Brandee Nalluri CAREER DEVELOPMENT COUNSELOR Cardiology:Improved, noted trace eedema Brandee Nalluri CAREER DEVELOPMENT COUNSELOR Cardiology:Uses 1L o2 at bed constantine e Brandee Nalluri CAREER DEVELOPMENT COUNSELOR Cardiology: S mokes one cigarette a day T he Patient was reencouraged to stop smoking. Brandee Nalluri CAREER DEVELOPMENT COUNSELOR Cardiology: T EE in March showed normal appearing bioprosthetic valve and normal EF of 53% c heck echo next year Brandee Nalluri CAREER DEVELOPMENT COUNSELOR Cardiology:Continue to have SOB with exertion u ses 1L O2 at home PRN and at bed time 6 minute walk study , was able to walk 600 feet, stopped 4 times to rest. 93% on RA. Brandee Vila CAREER DEVELOPMENT COUNSELOR Cardiology:follows with BERNICE Vila NP Cardiology: O n coumadin. 100% AF burden on recent device interrogation. Vijay Chavira MD Cardiology: S OB persists. Continues on Symbicort and Albuterol. Vijay Chavira MD Cardiology:Complains of severe SOB. PFT normal: SpO2: 93-95% Vijay Chavira MD Cardiology: T EE in March showed normal appearing bioprosthetic valve and normal EF of 53% Vijay Chavira MD Cardiology: B P today: 130/77 P rior BP: 136/84 (12/10/2022) His updated medication list for this problem includes: Furosemide 40 Mg Tablet (Furosemide) ..... Take 1 tablet by mouth twice a day Spironolactone 25 Mg Tablet (Spironolactone) ..... Take 1 tablet by mouth once a day Aspirin 81 Mg Tablet,delayed Release (dr/ec) (Aspirin) ..... Take 1 tablet by mouth once a day Vijay Chavira MD Cardiology:Device ch maxi showed B attery Longevity: 2.years remaining A T/AF [place]: 100.0% % Pacing: DOOR LINER: 98.3%, AP <1% Vijay Chavira MD Cardiology: H is updated medication list for this problem includes: Furosemide 40 Mg Tablet (Furosemide) ..... Take 1 tablet by mouth twice a day Spironolactone 25 Mg Tablet (Spironolactone) ..... Take 1 tablet by mouth once a day Aspirin 81 Mg Tablet,delayed Release (dr/ec) (Aspirin) ..... Take 1 tablet by mouth once a day Vijay Chavira MD Cardiology:Well cont rolled, continue to monitor Prior BP: 136/84 (12/10/2022) His updated medication list for this problem includes: Furosemide 40 Mg Tablet (Furosemide) ..... Take 1 tablet by mouth twice a day Spironolactone 25 Mg Tablet (Spironolactone) ..... Take 1 tablet by mouth once a day Aspirin 81 Mg Tablet,delayed Release (dr/ec) (Aspirin) ..... Take 1 tablet by mouth once a day Vijay Chavira MD Cardiology:JEFFY 2 wee ks ago showed normal appearing bioprosthetic valve and normal EF Vijay Chavira MD Cardiology:Device ch maxi showed B attery Longevity: 2 years and 2 months remaining A T/AF [place]: 100.0% % Pacing: RA - 0.0% RV - 99.6% LV - 99.6% BiV - 9 9.6% Vijay Chavira MD Cardiology:Blood pre ssure control is satisfactory. BP today: 136/84 P rior BP: 135/85 (07/18/2022) His updated medication list for this problem includes: Spironolactone 25 Mg Tablet (Spironolactone) ..... Take 1 tablet by mouth once a day Aspirin 81 Mg Tablet,delayed Release (dr/ec) (Aspirin) ..... Take 1 tablet by mouth once a day Vijay Chavira MD Cardiology:Leg swell ing persists. Continues on Lasix. Vijay Chavira MD Cardiology:SOB persi sts. Continues on Symbicort and Albuterol. Vijay Chavira MD Cardiology:SOB likel y related to ascites which is causing signfigant symptoms of SOB. He needs to have perecentesis of abdomen to relieve some disension. He has appt to see GI. He continues on diuretics lasix and spirionolactone. Vijay Chavira MD Cardiology:Normal ap pearing bioprosthetic valve and EF on ECHO 01/2022 Vijay Chavira MD Cardiology: Remote transmission shows AT/AF [place]: 11.1%. % Pacing: RA - 40.01% RV - 99.57% LV - 99.47%. BiV - 99.9% Vijay Chavira MD Cardiology: B P today: 135/85 P rior BP: 142/93 (03/14/2022) Vijay Chavira MD Cardiology: N ormal appearing bioprosthetic valve on echo 01/2022, normal EF Vijay Chavira MD Cardiology Vijay Acosta Cardiology: O n coumadin. 100% AF burden on recent device interrogation. Vijay Chavira MD Cardiology:Underwent GI work up which was not significant for anything acute per his report Vijay Chavira MD Cardiology: S mokes one cigarette a day T he Patient was reencouraged to stop smoking. Vijay Chavira MD Cardiology: B P elevated today at 142/93. Advised reduced sodium intake and routine monitoring of the blood pressure. We aim for less than 130/80. Vijay Chavira MD Cardiology: I mproved Vijay Chavira MD Cardiology: N ormal appearing bioprosthetic valve on echo 05/2020. Will continue routine monitoring. Vijay Chavira MD Cardiology:Abdominal ultrasound showed Nodular hepatic contour and homogeneous echotexture consistent with cirrhosis. N o evidence of ascites. Will refer him to GI specialist for further workup Vijay Chavira MD Cardiology:See above Tabby wallace Cardiology: S mokes one cigarette a day T he Patient was reencouraged to stop smoking. Tabby Knight Cardiology:Blood pre ssure control is satisfactory. Tabby Knight Cardiology Vijay Acosta Cardiology:Clinicall y he seems to have ascites which is a cause of his SOB and weight gain, I have addded spirionlactone 25 mg to his diuretics, and u/s of the abdomen to be done, likely he would benefit from paracentesis. Vijay Chavira MD Cardiology, moderate complexity :BP controlled. Continues medications. [place] [facility] Cardiology, moderate complexity : M ild leg swellling, continue Lasix. Check BMP and proBNP and f/u echo [facility] Cardiology, moderate complexity : S OB, worsening over last twoo weeks. Pt visibly SOB at visit today with decreased breath sounds, O2 sat normal on room air, we will do chest Xray, echo, labs, and f/u post testing. Pt instructed should his symptoms worsen, he shoudl go to ER. [facility] Cardiology, moderate complexity : P t has sleep apnea but is still waiting [facility] a CPAP [facility] Cardiology, moderate complexity :Smokes one cigarette a day [facility] Cardiology: P ersists. Will have him stop lasix. Vijay Chavira MD Cardiology: N ormal appearing bioprosthetic valve on echo 05/2020. Will continue routine monitoring. Vijay Chavira MD Cardiology: E levated today. Advised dietary sodium restriction and routine home monitoring. Vijay Chavira MD Cardiology: A s there's isn't any swelling on exam today, will have him discontinue lasix. Vijay Chavira MD Cardiology: P er patient he has quit smoking. Vijay Chavira MD Cardiology: O n coumadin. 100% AF burden on recent device interrogation. Vijay Chavira MD Cardiology: D enies symptoms. Continues on coumadin. Vijay Chavira MD Cardiology: H asn't been taking lasix. Started him on lasix 20mg bid until he sees bandar in 2 weeks. EF 55 on echo. High sodium intake in diet. Gross indiscretion. May 31, 2021 S ays he had headaceh after taking lasix, however has diuresed. Has reduced Na intake. He will try taking lasix once daily see if he can tolerate. Will have him come back and see vibha and see if there are any other recommendations Bhargav Rich MD Cardiology:Hasn't be en taking lasix. Started him on lasix 20mg bid until he sees bandar in 2 weeks. EF 55 on echo. High sodium intake in diet. Gross indiscretion. Bhargav Rich MD Cardiology:On coumadin Bhargav Rich MD Cardiology: D enies symptoms. On Xarelto. His insurance has refused the Xarelto and he will likely be placed on Coumadin. Bhargav Rich MD Cardiology follow up :Echo results from 05/2020 CONCLUSIONS: T echnically difficult study. Abnormal septal motion consistent with pacemaker or ICD implant . Normal left ventricular size and systolic function. E to A wave reversal consistent with impaired LV relaxation. Left ventricular ejection fraction is m easured at 55 %. Mild to moderate mitral valve regurgitation. 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 The valve was not well visualized. Peak systolic velocity 2.11 m /s, peak gradient 17.9 mmHg, mean gradient 10.4 mmHg, TV VTI 93.0 cm. IVC is dilated with partial respiratory response, c onsistent with moderately elevated right atrial pressures. The RA pressure is estimated at 10.0 mmHg. Vijay Chavira MD Cardiology follow up :notes no n ew sxs. Vijay Chavira MD Cardiology follow up :EKG today shows flutter, paced. Vijay Chavira MD Cardiology follow up : P aced on EKG. Remote transmission shows AT/AF [place]: 11.1% % Pacing: RA - 40.01% RV - 99.57% LV - 99.47% B iV - 99.9% Vijay Chavira MD Cardiology Follow up Ariel Rivera Cardiology Follow up :Patient che s quit smoking. Ariel Rivera Cardiology Follow up :SOB at baseline. Continues on Symbicort and Albuterol. [facility] Follow up :We await the echo results from today. [facility] Follow up :Paced onEKG. We await the remote transmission. On warfarin for retirement OAC. [facility] Follow up :Paced onEKG. We await the remote transmission. [facility] Cardiology New Patie nt :STRONGLY ENCOURAGED TO STOP SMOKING; SMOKING CESSATION TECHNIQUES DISCUSSED. [facility] Cardiology New Patie nt :Will have device interrogated. He continues on Warfarin for retirement OAC. [facility] Cardiology New Patie nt :SOB at baseline. Continues on Symbicort and Albuterol. [facility] Cardiology New Patient :Will remedios ck echo. [facility] Cardiology New Patie nt :Paced on EKG today. Will have monitoring transferred to our office per patient's preference. Will arrange device interrogation. [facility] Dcdaniela [facility] Hospital Follow up :Denies symptoms. On Xarelto. His insurance has refused the Xarelto and he will likely be placed on Coumadin. Vijay Chavira MD [facility] Hospital Follow up :Moderately severe on recent JEFFY, with mobile density consistent with endocarditis. He has just completed IV antibiotics and is due to see ID for further antibiotics, to be given orally. He has a vegetation on the valve and we will ask CT surgery to see him for further evaluation. Vijay Chavira MD Date Name CBC (INCLUDES DIFF/P LT) BASIC METABOLIC PANE L W/EGFR BASIC METABOLIC PANE L W/EGFR Abdominal US PROTHROMBIN TIME WIT H INR D-DIMER, QUANTITATIV E CBC (INCLUDES DIFF/P LT) PROBNP, N TERMINAL BASIC METABOLIC PANE L W/EGFR X-Ray, Chest - Routi ne Stress Regadenoson Complete Echo Complete Echo Complete Echo HISTORY OF PROCEDURES Procedure Date Procedure Name Provider Procedure Notes S tatus Di Villareal MD complete d Di Peña MD completed Di Chavira MD complet ed Di Chavira MD complet ed Di Chavira MD complet ed Di Hartmann MD complete d Di Hartmann MD complete d Di Peña MD completed Complex e/m visit add on Vijay Chavira MD completed SHON Chavira MD complet ed Di Chavira MD complet ed Di landin MD completed Di Hartmann MD complete d Di Chavira MD complet ed Di Hartmann MD complete d Di Hartmann MD complete d Di Peña MD completed Di Chavira MD complet ed Di Chavira MD complet ed Di Hunter RN completed Ambulatory Oximetry Vijay Chavira MD completed Di Peña MD completed 6 minute walk test Vijay Chavira MD completed Di Villareal MD complete d Di Chavira MD complet ed Di Chavira MD complet ed Di Chavira MD complet ed Di Hartmann MD complete d Di Hunter RN completed Di Chavira MD complet ed Protime aMggie Crow MD completed Protime Vijay Chavira MD complet ed Protime Vijay Chavira MD complet ed EKG Vijay Chavira MD complet ed Protime Bhargav Rich MD compl eted Protime Vijay Chavira MD complet ed Protime Vijay Chavira MD complet ed Protime Darren Hartmann MD complete d Protime Vijay Chavira MD complet ed Protime Maggie Crow MD completed Protime Maggie Crow MD completed Protime Elia Hunter RN completed EKG Vijay Chavira MD complet ed Protime Vijay Chavira MD complet ed Protime Austin Pettit MD complet ed Protime Tiffanie landin MD completed Protime Michael Brown MD completed Protime Bhargav Rich MD compl eted Protime Sanford Villareal MD complete d Protangle Chavira MD complet ed EKG Vijay Chavira MD complet ed EKG Vijay Chavira MD complet ed Protime Vijay Chavira MD complet ed Protime Sanford Villareal MD complete d Protime Maggie Crow MD completed Protime Bhargav Rich MD compl eted EK Vijay Chavira MD complet ed Protime Sanford Villareal MD complete d Protime Bhargav Rich MD compl eted Protime Maggie Crow MD completed Protime Sanford Villareal MD complete d Protime Vijay Chavira MD complet ed Protime Maggie Crow MD completed EKG Vijay Chavira MD complet ed Phone Anti-Coag Management Maggie Crow MD completed EKG Bhargav Rich MD compl eted Protime Vijay Chavira MD complet ed Protangle Rich MD compl eted EKG Bhargav Rich MD compl eted Protime Maggie Crow MD completed Protime Elia Hunter RN completed Protime Elia Hunter RN completed Protime Darren Hartmann MD complete d Protime Vijay Chavira MD complet ed EKG Vijay Chavira MD complet ed Protime Jag Peña MD completed Protime Nurse .Triage completed Protime Maggie Crow MD completed Protime Maggie Crow MD completed Protime Vijay Chavira MD complet ed Protime Jag Peña MD completed Protime Nurse .Triage completed Protangle Chavira MD complet ed Protime Nurse .Triage completed Protime Nurse .Triage completed EKG Vijay Chavira MD complet ed EKG Vijay Chavira MD complet ed EKG Vijay Chavira MD complet ed SNOMED-CT: [id number] Current Medications Documented Vijay Chavira MD completed
[2024-09-04 11:50] VITALS: BP 155/78; PULSE 91; RESP 16; TEMP 36.5; O2SAT 94
--- OUTSIDE RECORDS SUMMARY | 2024-09-04 13:14 | XMS_ITS | CONTINUITY OF CARE DOCUMENT ---
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 anticoagulant therapy active Blanca Sandra RN Shortness [...] Vijay Chavira MD LUCY active Marlene Ventimiglia [employer] Ascites active Vijay Chavira MD Cardiology examination active Paul Colindreszai Cellulitis active Marlene Ventimiglia [facility] [facility] ENCOUNTERS Date Type Provider Location Encounter Diag nosis - In-person encounter Office Visit Marlene Leeglia [facility] [place] [facility] Cellulitis - In-person encounter Office Visit Vijay Chavira MD [place] [facility] Cardiology examination - In-person encounter Office Visit Vijay Chavira MD [place] [facility] - In-person encounter Office Visit Vijay Chavira MD [place] [facility] - In-person encounter Office Visit Vijay Chavira MD [facility] Office - In-person encounter Office Visit Vijay Chavira MD [place] [facility] - In-person encounter Office Visit Vijay Chavira MD [place] [facility] - In-person encounter Office Visit Vijay Chavira MD [place] [facility] Ascites - In-person encounter Office Visit Darren Hartmann MD [place] [facility] LUCY - In-person encounter Office Visit Vijay Chavira MD [place] [facility] HypertensionLeg EdemaHeadaches - In-person encounter Office Visit Bhargav Rich MD [place] [facility] - In-person encounter Office Visit Bhargav Rich MD [place] [facility] - In-person encounter Office Visit Vijay Chavira MD [place] [facility] - In-person encounter Office Visit Vijay Chavira MD [place] [facility] - In-person encounter Office Visit Vijay Chavira MD [place] [facility] TR s/p bioprosthetic valve replacement 09/2018Tobacco abuseHepatic cirrhosisAtrial flutter s/p JEFFY/CVHeparin-induced thrombocytopenia [HIT]COPDComplete heart block s/p Medtronic DC PPM - In-person encounter Office Visit Vijay Chavira MD [place] [facility] Shortness of breathTR s/p bioprosthetic valve replacement 09/2018Endocarditis, tricuspidHistory of pulmonary embolus VITAL SIGNS Date Observation Value Provider Body Mass Index (Ratio) 30.86 kg/m2 Stephen noe Cranmer blood pressure, cuff size regular Ke rri Adriano blood pressure, diastolic 94 mm[Hg] [facility]ri [facility], systolic 149 mm[Hg] Alex ri Adriano oxygen saturation, oximetry 93 % Dejah Adriano pulse rate 90 /min Dejah Monsterines [facility] weight E&M 203 [lb_av] Dejah Olegmelbaines [facility] height E&M 68 [in_i] Dejah Cathleen [facility] Body Mass Index (Ratio) 30.86 kg/m2 Paul [...] [lb_av] Manuel y height E&M 68 [in_i] [facility] y Body Mass Index (Ratio) 30.71 kg/m2 Francia Chavira MD blood pressure, diastolic 84 mm[Hg] Ebony nkLogic blood pressure, systolic 136 mm[Hg] Kell kLog blood pressure, diastolic 84 mm[Hg] Caro wade [place] blood pressure, systolic 136 mm[Hg] [facility] carmen [place] oxygen saturation, oximetry 94 % Leeann Valladares [...] pressure, diastolic 72 mm[Hg] Am travis Ventimiglia [employer] blood pressure, systolic 136 mm[Hg] Pitcher nda Ventimiglia [facility] respiratory rate E&M 16 /min Kaylee Acosta [...] blood pressure, systolic 158 mm[Hg] Cat herine Golva oxygen saturation, oximetry 96 % Layla Golva respiratory rate E&M 16 /min Catheri ne Golva pulse rate 59 /min Layla Golva weight E&M 196 [lb_av] Layla Asad blood pressure, cuff size regular Ca therine Golva height E&M 68 [in_i] Layla Asad Body [...] Dejah Gruenenfelder respiratory rate E&M 16 /min Deajh G ruenenfelder pulse rate 109 /min Dejah [...] RN Normal prothrombin time (patient) 70.9 s Elai Hunter RN coagulation managed by Elia Hunter [...] RN Normal prothrombin time (patient) 30.7 s lEia Hunter RN coagulation managed by Elia Hunter [...] 1 capsule twice a day Marlene Ventimiglia [employer] [facility] [facility] doxycycline hyclate 100 mg tablet,delayed release (DR/EC) completed 1 tablet by mouth twice a day - Marlene Ventimiglia [employer] [facility] warfarin 2.5 mg tablet active TAKE 1 [...] 1/2 TAB OF THE 2.5MG - Blanca Sandra RN warfarin 2.5 mg [...] single dose as needed - Marlene Back [employer] [facility] #30, 30 days supply, Prescribed by NASREEN [...] history of marijuana use no Marlene Ventimiglia [facility] drug use no Marlene Ventimig mary [facility] alcohol use no Marlene Ventimig mary [employer] [facility] smoking, year quit 2020 Marlene Ve ntimiglia [facility] number of years as a smoker 30 a Marlene Ventimiglia [facility] smoking history, tot al pack/day 1/2 ppd Marlene Ventimiglia [facility] cigarette use yes Marlene Ventimi glia [employer] smoking status Former smoker Marlenetravis Qiu miglia [employer] [facility] smoking, year quit 2020 Brandee N alluri [employer] number of years as a smoker 30 a Brandee Nalluri [employer] smoking history, tot al pack/day 1/2 ppd Brandee Nalluri [employer] cigarette use yes Brandee Nallur i [employer] smoking status Former smoker Brandee Karime uri [employer] smoking, year quit 2020 Vijay Chavira MD [...] years as a smoker 30 a Layla Golva smoking history, tot al pack/day 1/2 ppd Layla Golva cigarette use yes Layla Golva smoking status Former smoker Layla Ot is [...] Dejah gaston smoking status Former smoker Dejah santanaalke social history E&M S moking History: Milvia [...] Payer name Policy type / Coverage type [place] [employer] party ID [facility] Other [facility] COMPLETE CARE [id number] (PPO C-SNP) Commercial insurance company [id number] [employer] (2) Medicaid [id number] ADVANCE DIRECTIVES Name Date DISCUSSED - NO DECISION MADE TREATMENT PLAN Date Name Performer [id number],C,B lood pressure control is satisfactory. BP today: 136/84 P rior BP: 135/85 (07/18/2022) His updated medication list for this problem includes: Spironolactone 25 Mg Tablet (Spironolactone) ..... Take 1 tablet by mouth once a day Aspirin 81 Mg Tablet,delayed Release (dr/ec) (Aspirin) ..... Take 1 tablet by mouth once a day Vijay Chavira MD [id number],C,L eg swelling persists. Continues on Lasix. Vijay Chavira MD [id number],C,S OB persists. Continues on Symbicort and Albuterol. Vijay Chavira MD [id number],C,S OB likely related to ascites which is causing signfigant symptoms of SOB. He needs to have perecentesis of abdomen to relieve some disension. He has appt to see GI. He continues on diuretics lasix and spirionolactone. Vijay Chavira MD [id number],C,N ormal appearing bioprosthetic valve and EF on ECHO 01/2022 Vijay Chavira MD [id number],C,0 12/02/2022 Remote transmission shows AT/AF [place]: 11.1%. % Pacing: RA - 40.01% RV - 99.57% LV - 99.47%. BiV - 99.9% Vijay Chavira MD [id number],C, B P today: 135/85 P rior BP: 142/93 (03/14/2022) Vijay Chavira MD [id number],C, N ormal appearing bioprosthetic valve on echo 01/2022, normal EF Vijay Chavira MD [id number],S, Vijay silveira MD [id number],C, O n coumadin. 100% AF burden on recent device interrogation. Vijay Chavira MD [id number],C,U nderwent GI work up which was not significant for anything acute per his report Vijay Chavira MD [id number],C, S mokes one cigarette a day T he Patient was reencouraged to stop smoking. Vijay Chavira MD [id number],C, B P elevated today at 142/93. Advised reduced sodium intake and routine monitoring of the blood pressure. We aim for less than 130/80. Vijay Chavira MD [id number],B, I mproved Vijay Chavira MD [id number],S, N ormal appearing bioprosthetic valve on echo 05/2020. Will continue routine monitoring. Vijay Chavira MD [id number],C,A bdominal ultrasound showed Nodular hepatic contour and homogeneous echotexture consistent with cirrhosis. N o evidence of ascites. Will refer him to GI specialist for further workup Vijay Chavira MD [id number],S,See above Ana Maria Knight [id number],C, S mokes one cigarette a day T he Patient was reencouraged to stop smoking. Tabby Knight [id number],C,B lood pressure control is satisfactory. Tabby Knight [id number],S, Vijay silveira MD [id number],C,C linically he seems to have ascites which is a cause of his SOB and weight gain, I have addded spirionlactone 25 mg to his diuretics, and u/s of the abdomen to be done, likely he would benefit from paracentesis. Vijay Chavira MD [id number],C,B P controlled. Continues medications. Marlene Lazarusmiglia [facility] [id number],C, M ild leg swellling, continue Lasix. Check BMP and proBNP and f/u echo [facility] [id number],C, S OB, worsening over last twoo weeks. Pt visibly SOB at visit today with decreased breath sounds, O2 sat normal on room air, we will do chest Xray, echo, labs, and f/u post testing. Pt instructed should his symptoms worsen, he shoudl go to ER. [place] Lazarusmiglashley [facility] [id number],C, P t has sleep apnea but is still waiting for a CPAP [facility] [id number],C,Smokes one ci garette a day [facility] [id number],S, P ersists. Will have him stop lasix. Vijay Chavira MD [id number],S, N ormal appearing bioprosthetic valve on echo 05/2020. Will continue routine monitoring. Vijay Chavira MD [id number],W, E levated today. Advised dietary sodium restriction and routine home monitoring. Vijay Chavira MD [id number],B, A s there's isn't any swelling on exam today, will have him discontinue lasix. Vijay Chavira MD [id number],S, P er patient he has quit smoking. Vijay Chavira MD [id number],S, O n coumadin. 100% AF burden on recent device interrogation. Vijay Chavira MD [id number],S, D enies symptoms. Continues on coumadin. Vijay Chavira MD [id number],S, H asn't been taking lasix. Started him [...] are any other recommendations Bhargav Rich MD [id number],C,H asn't been taking lasix. Started him on lasix 20mg bid until he sees bandar in 2 weeks. EF 55 on echo. High sodium intake in diet. Gross indiscretion. Bhargav Rich MD [id number],C,On coumadin S bernabe Rich MD [id number],C, D enies symptoms. On Xarelto. His insurance has refused the Xarelto and he will likely be placed on Coumadin. Bhargav Rich MD [id number],C,E cho results from 05/2020 CONCLUSIONS: T echnically [...] estimated at 10.0 mmHg. Vijay Chavira MD [id number],C,notes no new sxs. Vijay Chavira MD [id number],C,E KG today shows flutter, paced. Vijay Chavira MD [id number],S, P aced on EKG. Remote transmission shows AT/AF [place]: 11.1% % Pacing: RA - 40.01% RV [...] ill check labs as well Marlene Back [employer] [facility] [facility] Cardiology: S OB persists. Continues on Symbicort and Albuterol. Brandee Nalluri [employer] Cardiology: O n coumadin. 100% AF burden on recent device interrogation. Brandee Nalluri [employer] Cardiology: B P today: 132/90 P rior BP: 130/77 (09/18/2023) Brandee Nalluri [employer] Cardiology:Improved, noted trace eedema Brandee Nalluri [employer] Cardiology:Uses 1L o2 at bed constantine e Brandee Nalluri [employer] Cardiology: S mokes one cigarette a day T he Patient was reencouraged to stop smoking. Brandee Nalluri [employer] Cardiology: T EE in March showed normal appearing bioprosthetic valve and normal EF of 53% c heck echo next year Brandee Nalluri [employer] Cardiology:Continue to have SOB with exertion u ses 1L O2 at home PRN and at bed time 6 minute walk study , was able to walk 600 feet, stopped 4 times to rest. 93% on RA. 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 % Pacing: RA - 40.01% RV [...] Cardiology, moderate complexity :BP controlled. Continues medications. [place] Lazarusmiglia [facility] Cardiology, moderate complexity : M ild leg swellling, continue Lasix. Check BMP and proBNP and f/u echo [place] Jesusglashley [facility] Cardiology, moderate complexity : S OB, worsening over last twoo weeks. Pt visibly SOB at visit today with decreased breath sounds, O2 sat normal on room air, we will do chest Xray, echo, labs, and f/u post testing. Pt instructed should his symptoms worsen, he shoudl go to ER. [place] Jesusglia [facility] Cardiology, moderate complexity : P t has sleep apnea but is still waiting for a CPAP [facility] Cardiology, moderate complexity :Smokes one cigarette a day [facility] Cardiology: P ersists. Will have him stop [...] aced on EKG. Remote transmission shows AT/AF [place]: 11.1% % Pacing: RA - 40.01% RV [...] await the remote transmission. On [place]farin for [facility] OAC. [facility] Follow up :Paced onEKG. We await the remote transmission. [facility] Cardiology New Patie nt :STRONGLY ENCOURAGED TO STOP SMOKING; SMOKING CESSATION TECHNIQUES DISCUSSED. [facility] Cardiology New Patie nt :Will have device interrogated. He continues on Warfarin for [facility] OAC. [facility] Cardiology New Patie nt :SOB at baseline. Continues on Symbicort and Albuterol. [facility] Cardiology New Patient :Will remedios ck echo. [facility] Cardiology New Patie nt :Paced on EKG today. Will have monitoring transferred to our office per patient's preference. Will arrange device interrogation. [facility] Akdaniela [facility] Hospital Follow up :Denies symptoms. On Xarelto. His insurance has refused the Xarelto and he will likely be placed on Coumadin. Vijay Chavira MD [facility] Hospital Follow up :Moderately severe on recent [...] completed Di Chavira MD complet ed Protime Maggie Crow MD completed Protime Vijay [...] EKG Vijay Chavira MD complet ed SNOMED-CT: [id number] Current Medications Documented Vijay Chavira MD completed
--- NOTE | 2024-09-04 13:19 | ED_ITS ---
HPI - General Adult General Chief complaint: Wound/Laceration Stated complaint: L leg infection Time Seen by Provider: 09/04/24 13:04 History of Present Illness HPI narrative: 69-year-old male presenting to the emergency department for evaluation for left lower extremity cellulitis. Patient does have a history of MRSA and previous wound cultures does show sensitivity to clindamycin. Patient states approximately 1 week ago he started having a worsening blister on the left medial leg. Patient did have follow-up with his primary care physician was started on doxycycline yesterday and patient has had 2 doses of this. The wound is [place] the and the erythema has not spread beyond the daljit that the physician made yesterday. Related Data Home Medications ?Medication ?Instructions ?Recorded ?Confirmed ?Last Taken ?Type inhalational spacing device (Space #1 ea 03/10/19 07/13/24 Unknown History Chamber Plus) aspirin 81 mg tablet,delayed 81 mg PO DAILY 04/11/20 07/13/24 Unknown History release (Adult Aspirin Regimen) spironolactone 25 mg tablet 25 mg PO DAILY 04/17/22 07/13/24 Unknown History warfarin 2.5 mg tablet 2.5 mg PO .COMPLEX 04/17/22 07/13/24 06/10/22 History Allergies Allergy/AdvReac Type Severity Reaction Status Date / Time acenocoumarol AdvReac Unknown Unknown Verified 07/13/24 13:09 Lipozene Allergy Severe Swelling Uncoded 07/13/24 13:09 of Lip/Tongue/Throat Review of Systems Review of Systems: All systems reviewed & are unremarkable except as noted in HPI and below PMFSH Past Medical History Medical History Suspected sleep apnea Subungual hematoma of great toe Abdominal pain Chronic hepatitis B Bacterial endocarditis Vitamin D deficiency Viral hepatitis B with hepatitis delta, 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 Tobacco use Sinus congestion Primary osteoarthritis involving multiple joints Non-rheumatic tricuspid valve insufficiency GERD without esophagitis Cough COPD mixed type Bronchitis Acute non-recurrent frontal sinusitis Acute hepatitis B with delta-agent 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 Thrombocytopenia History of Coumadin therapy Colon cancer screening Abdominal distension Hepatitis B URI (upper respiratory infection) Wheezing Dyspnea on exertion Contact dermatitis Sleep apnea Chronic obstructive pulmonary disease URI with cough and congestion Artificial pacemaker Complete heart block Tricuspid insufficiency Hepatitis C Cirrhosis GERD (gastroesophageal reflux disease) Surgical History Surgical History History of heart valve replacement Family History Family History Father Lung cancer Acute alcoholic intoxication Social History Social History (Updated 07/13/24 @ 13:19 by Tessa Garzon MA) Smoking packs per day: 0.5 Smoking cigarettes per day: 10.0 Years smoked: 40 Smoking pack-years: 20.00 Smoking status: Former smoker Tobacco type: cigarettes Second hand tobacco smoke exposure: Yes Smoking end date: 04/01/18 Alcohol intake: never Substance use: never Substance use type: does not use Do You Feel Safe in your Home?: Yes Lack of Transportation: YES Lack of Food: Sometimes True Current Housing: I Have Housing Concerned About Future Housing: Decline to Answer Difficulty Paying Gas/Electric Bills: No Difficulty Paying for Meds: No Currently Unemployed: No Education: High School Diploma/GED Difficulty w/ Childcare or Family Care: No Living arrangements: with family Spiritual care concerns: No Exam Narrative: APPEARANCE: Well appearing, no pain, no distress, well-nourished. HEAD: normocephalic, atraumatic. EYES: PERRLA/EOMI, conjunctivae clear. NOSE: Normal no drainage EARS:TMS clear with good light reflex. THROAT: Pharynx clear, no exudate. NECK: Supple. No adenopathy, no masses. RESPIRATORY: Airway patent, respirations nonlabored. Clear to auscultation bilaterally, no rales, rhonchi, wheezing. CARDIOVASCULAR: Regular rate and rhythm without murmurs rubs or gallops. ABDOMINAL: Soft, nontender, nondistended, normal bowel sounds MUSCULOSKELETAL: Moves all extremities. Strength/ROM intact, No edema, No calf tenderness. NEURO: Alert. Cranial nerves II through XII intact. Good gait. Good coordination SKIN: Cellulitis to left medial leg Course Vital Signs Vital signs: Vital Signs Temperature 97.7 F 09/04/24 11:50 Pulse Rate 91 09/04/24 11:50 Respiratory Rate 16 09/04/24 11:50 Blood Pressure 155/78 H 09/04/24 11:50 Pulse Oximetry 94 09/04/24 11:50 Oxygen Delivery Room Air 09/04/24 11:50 Temperature 97.7 F 09/04/24 11:50 Pulse Rate 78 09/04/24 14:00 Respiratory Rate 16 09/04/24 14:00 Blood Pressure 139/91 H 09/04/24 14:00 Pulse Oximetry 98 09/04/24 14:00 Oxygen Delivery Room Air 09/04/24 11:50 Medical Decision Making MDM Narrative Medical decision making narrative: 69-year-old male with history of MRSA that was sensitive to clindamycin presents emergency department for evaluation for a cellulitis on his left medial calf. Wound has not worsened since he was seen by his primary care physician started on antibiotics. Patient was told by his primary care physician he needed to be started on additional antibiotic. Patient had been on doxycycline but this was stopped and patient was started on clindamycin with his 1st dose given p.o. in the emergency department. Blood culture was ordered. Patient was comfortable the plan for discharge and close follow-up. Differential Diagnosis Differential Diagnosis: Abscess, cellulitis, venous stasis, DVT Vital Signs Vital Signs: Vital Signs Temperature 97.7 F 09/04/24 11:50 Pulse Rate 91 09/04/24 11:50 Respiratory Rate 16 09/04/24 11:50 Blood Pressure 155/78 H 09/04/24 11:50 Pulse Oximetry 94 09/04/24 11:50 Oxygen Delivery Room Air 09/04/24 11:50 Temperature 97.7 F 09/04/24 11:50 Pulse Rate 78 09/04/24 14:00 Respiratory Rate 16 09/04/24 14:00 Blood Pressure 139/91 H 09/04/24 14:00 Pulse Oximetry 98 09/04/24 14:00 Oxygen Delivery Room Air 09/04/24 11:50 Discharge Plan Discharge Clinical Impression: Cellulitis Patient Disposition: Home Condition: Stable Instructions: Antibiotic Form, Cellulitis (ED) Additional Instructions: Stop taking the doxycycline and switch to clindamycin. You were treated with your 1st dose of clindamycin in the emergency department. Take the clindamycin as directed until completed. Wound care as directed. Have close follow-up with your primary care physician for further our Wound evaluations. If you have any worsening symptoms then please call or return to the emergency department. Patient Language: Icelandic Prescriptions: New clindamycin HCl [Cleocin HCl] 300 mg capsule 300 mg PO Q6H 10 Days Qty: 40 0RF No Action (DME) Space Chamber Plus Spacer See Rx Instructions .ROUTE .MEDSUPPLY Qty: 1 Rx Instructions: use As directed aspirin [Adult Aspirin Regimen] 81 mg tablet,delayed release (DR/EC) 81 mg PO DAILY warfarin 2.5 mg tablet 2.5 mg PO .COMPLEX Rx Instructions: 2.5 mg orally daily except for Tues&Thurs- take 5mg; spironolactone 25 mg tablet 25 mg PO DAILY Spiriva Respimat 2.5 mcg/actuation mist 2 puff INHALATION DAILY Qty: 4 11RF entecavir 0.5 mg tablet See Rx Instructions .ROUTE .COMPLEX Qty: 30 11RF Dose Instruction: TAKE 1 TABLET BY MOUTH ONCE DAILY. Rx Instructions: TAKE 1 TABLET BY MOUTH ONCE DAILY. albuterol sulfate 2.5 mg /3 mL (0.083 %) solution for nebulization See Rx Instructions .ROUTE .COMPLEX Qty: 75 3RF Dose Instruction: USE 1 VIAL PER NEBULIZER EVERY 4 - 6 HOURS NEEDED FOR SHORTNESS OF BREATH OR WHEEZING FOR 30 DAYS] Rx Instructions: USE 1 VIAL PER NEBULIZER EVERY 4 - 6 HOURS NEEDED FOR SHORTNESS OF BREATH OR WHEEZING FOR 30 DAYS] buspirone 5 mg tablet See Rx Instructions .ROUTE .COMPLEX Qty: 180 2RF Dose Instruction: 5 MG ORALLY TWICE A DAY Rx Instructions: 5 MG ORALLY TWICE A DAY budesonide-formoterol [Symbicort] 160-4.5 mcg/actuation HFA aerosol inhaler See Rx Instructions .ROUTE .COMPLEX Qty: 10.2 3RF Dose Instruction: INHALE 2 PUFF BY MOUTH EVERY 12 HOURS RINSE AND SPIT AFTER EACH USE Rx Instructions: INHALE 2 PUFF BY MOUTH EVERY 12 HOURS RINSE AND SPIT AFTER EACH USE metformin 500 mg tablet 500 mg PO BID Qty: 180 2RF albuterol sulfate 90 mcg/actuation HFA aerosol inhaler See Rx Instructions .ROUTE .COMPLEX Qty: 8.5 3RF Dose Instruction: INHALE 1 PUFF EVERY 4-6 HOURS NEEDED FOR SHORTNESS OF BREATH Rx Instructions: INHALE 1 PUFF EVERY 4-6 HOURS NEEDED FOR SHORTNESS OF BREATH oxycodone-acetaminophen [Percocet] 5-325 mg tablet 1 tablet PO Q6H PRN (Reason: pain) Qty: 30 0RF Follow-up/Referrals: Billy Wells MD [Primary Care Provider] -
[2024-09-04] MEDS: CLINDAMYCIN HCL 150 MG CAP 300 MG PO (13:29)
[2024-09-04 14:00] VITALS: BP 139/91; PULSE 78; RESP 16; O2SAT 98
== END 2024-09-04 14:02 | disposition home or self-care (01) ==
PROVIDERS: Emergency Provider Emergency Medicine; PCP Emergency Medicine
DX: L03.116 Cellulitis of left lower limb (principal); J44.9 Chronic obstructive pulmonary disease, unspecified; B18.1 Chronic viral hepatitis B without delta-agent; K74.60 Unspecified cirrhosis of liver; K21.9 Gastro-esophageal reflux disease without esophagitis; M19.90 Unspecified osteoarthritis, unspecified site; Z95.0 Presence of cardiac pacemaker; Z95.2 Presence of prosthetic heart valve; Z87.891 Personal history of nicotine dependence; Z86.14 Personal history of Methicillin resistant Staphylococcus aureus infection; Z86.19 Personal history of other infectious and parasitic diseases
CPT/HCPCS: 87070; 87075; 87205; 99283

== ENCOUNTER 2024-09-28 09:36 | Outpatient (CLI) | payer MEDICARE, MEDICAID, SELFPAY ==
[2024-09-28 10:35] LABS: Hematocrit 47.8 % (42.0-52.0); Hemoglobin 15.4 g/dL (14.0-18.0); Immature Platelet Fraction Pct 8.1 % (0.9-11.2); Mean Corpuscular HGB Conc 32.2 g/dl (32-36); Mean Corpuscular Hemoglobin 30.4 pg (26-34); Mean Corpuscular Volume 94.3 fl (80-100); Mean Platelet Volume 11.2 fl (7.4-10.4); Platelet Count Result 103 k/mm3 (150-375); Red Blood Count 5.07 M/mm3 (4.6-6.20); White Blood Count 6.6 K/mm3 (4.5-10.0)
[2024-09-28 10:51] LABS: Alanine Aminotransferase 22 U/L (6-50); Albumin Level 4.2 g/dL (3.5-5.1); Alkaline Phosphatase 67 U/L (38-126); Anion Gap 8 mmol/L (4-12); Aspartate Amino Transferase 27 U/L (17-59); Bilirubin,Total 0.5 mg/dL (0.2-1.3); Blood Urea Nitrogen 14 mg/dL (9-20); Calcium 8.8 mg/dL (8.4-10.2); Carbon Dioxide 26 mmol/L (22-30); Chloride 103 mmol/L (98-107); Estimated Glomerular Filt Rate > 60; Glucose 149 mg/dL (65-110); Potassium 4.3 mmol/L (3.4-5.0); Sodium 137 mmol/L (137-145); Total Protein 7.4 g/dL (6.3-8.2)
[2024-09-28 14:05] LABS: Hepatitis B Surface Antigen 4.66 S/C
[2024-09-28 14:06] LABS: Hepatitis B Surface Antigen Re 4.58 S/C
[2024-09-28 14:07] LABS: Hepatitis B Surface Antigen Reactive (Negative)
[2024-09-28 14:40] LABS: Hepatitis B Surface Anti Res Negative
[2024-09-29 14:03] LABS: Hepatitis B DNA PCR NOT DETECTED (NOT DETECTED); Hepatitis B DNA PCR NOT DETECTED Log IU/mL (NOT DETECTED)
[2024-09-30 11:53] LABS: Alpha Fetoprotein TumorMarker. 2.4 ng/mL (<6.1)
== END 2024-09-28 09:37 | disposition home or self-care (01) ==
PROVIDERS: PCP Emergency Medicine; Visit Provider Internal Medicine Gastroenterology
DX: K74.60 Unspecified cirrhosis of liver (principal); B18.1 Chronic viral hepatitis B without delta-agent
CPT/HCPCS: 36415; 80053; 82105; 85027; 85055; 86706; 87340; 87517

== ENCOUNTER 2024-10-27 13:14 | Outpatient (CLI) | payer MEDICARE, MEDICAID, SELFPAY ==
--- NOTE | ~2024-10-27 | CT_ITS ---
CT of the Abdomen and Pelvis: Indication: Cirrhosis of liver Technique: 2.5 mm axial scans were obtained through the abdomen and pelvis prior to and following in travenous administration of 100 cc of Omnipaque 350. Dose reduction technique was used on this scan b y utilizing automated exposure control and iterative reconstruction technique. The dose-length produc t (DLP) was 2206.98 mGy-cm. COMPARISON: Ultrasound dated 08/31/2024 Findings: Scans through the lung bases are unremarkable. Nodular contour of liver is compatible cirrhosis. There is a 2.2 cm probable hypervascular mass in th e left hepatic lobe (series 7 image 31), which correlates with finding on recent ultrasound. Small ca lcified gallstone present. The spleen, pancreas, adrenals and kidneys are within normal limits. No e vidence of aortic aneurysm. No lymphadenopathy. No bowel obstruction or bowel wall thickening. There is no evidence to suggest acute appendicitis. Images through the pelvis were performed. Urinary bladder unremarkable. No pelvic mass seen. No ascit es. 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 This is raises the possibility of hepatocellular carcinoma given evidence of underlying cirrhosis. Other lesions are not excluded. Correlate with serum alpha-fetoprotein levels. Pre and postcontrast hepatic MR recommended to further assess the signal characteristics of the lesion. Reviewed, dictated and finalized at location M. 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 This is raises the possibility of hepatocellular carcinoma given evidence of underlying cirrhosis. Other lesions are not excluded. Correlate with serum alpha-fetoprot ein levels. Pre and postcontrast hepatic MR recommended to further assess the s ignal characteristics of the lesion.
--- OUTSIDE RECORDS SUMMARY | 2024-10-27 13:22 | XMS_ITS | Encounter Summary ---
Author Organization [facility] Address [address] [place] [address] Care Team Providers Care Film Drying Machine Operator Name Role Phone Billy Wells MD Primary Care Provider [phone] Lauro Paz MD Unavailable [phone] Amanda Wheeler MD Unavailable Encounter Details Date Type Department Care Team (Late st Contact Info) Description 12/09/2018 Abstract [facility] at [address] [address] Alejandro Ceballos MA Social History Tobacco Use Types Packs/Day Years Used Date Smoking Tobacco: Every Day Cigarettes 0.5 45 Started: 1971; Last attempted to quit: 2016 Smokeless Tobacco: Never Alcohol Use Standard Drinks/Week Comments No 0 (1 standard drink = 0.6 oz pur e alcohol) AUDIT-C Answer Date Recorded Frequency of Alcohol Consumption Never 01/13/2018 Average Number of Drinks Not on file 018 Frequency of Binge Drinking Not on file 12/30 Sex and Gender Information Value Date Recorded Sex Assigned at Not on file Legal Sex Male 2:34 PM CDT Gender Identity Not on file Sexual Orientation Not on file 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 file Not on file Not on file Not on file Not on file Not on file Not on file documented as of this encounter Plan of Treatment Not on file documented as of this encounter Procedures Procedure Name Priority Date/Time Associated Diagnosis Comments CBC (OUTSIDE LAB) Routine 11/14/2018 BASIC METABOLIC PANEL Routine 11/14/2018 LIPID PANEL Routine 11/13/2018 HEPATIC FUNCTION PANEL Routine 11/13/2018 PRO-BRAIN NATRIURETIC PEPTIDE Routine 11/12/2018 documented in this encounter Results * CBC (OUTSIDE LAB) (11/14/2018) WBC 6.1 HGB 11.2 HCT 33.6 PLT 83 11/14/2018 [facility] Abstract LAB-OUTSIDE/ABSTRACTED Final Result * BASIC METABOLIC PANEL (11/14/2018) Pathologist [facility] SODIUM S/P/B 138 POTASSIUM S/P/B 4.1 CO2 23 CHLORIDE S/P/B 106 GLUCOSE 150 mg/dL CALCIUM S/P/B 8.9 BUN 18 CREATININE S/P/B 1.05 0.7 - 1.3 11/14/2018 [facility] Abstract LABORATORY Final Result * LIPID PANEL (11/13/2018) Pathologist [facility] CHOLESTEROL 73 HDL 29 TRIGLYCERIDES 60 NON HDL CHOLESTEROL 44 LDL (CALCULATED) 32 11/13/2018 [facility] Abstract LABORATORY Final Result * HEPATIC FUNCTION PANEL (11/13/2018) Pathologist [facility] ALBUMIN S/P/B 3.5 3.5 - 5.0 ALKALINE PHOSPHATASE S/P/B 108 ALT 37 AST 35 BILIRUBIN TOTAL S/P/B 0.5 TOTAL PROTEIN S/P/B 7.6 11/13/2018 [facility] Abstract LABORATORY Final Result * PRO-BRAIN NATRIURETIC PEPTIDE (11/12/2018) PRO-BRAIN NATRIURETIC PEPTIDE 1,658 11/12/2018 [facility] Abstract LABORATORY Final Result documented in this encounter Visit Diagnoses Not on filedocumented in this encounter Care Teams Film Drying Machine Operator Relationship Specialty Start Date End Date Billy Wells MD [address] [facility] [address] [place] [address] PCP - General INTERNAL MEDICINE 01/01/18 Lauro Paz MD [address] [place], [place] [id number] [place] [employer] INTERVENTIONAL CARDIOLOGY 01/02/18 Amanda Wheeler MD [address] [place], [place] [address] EP Pit [employer] CLINICAL CARDIAC ELECTROPHYSIOLOGY 12/12/18 documented as of this encounter
--- OUTSIDE RECORDS SUMMARY | 2024-10-27 13:22 | XMS_ITS | Continuity of Care Document ---
Author Organization [facility] Address [address] [place] [address] Phone Care Team Providers Care Hacksaw Inspector Name Role Phone Fan LUDWIG, Vijay RAUSCH Unavailable Unavail able Fan LUDWIG FACC, Mohammad Unavailable Unavail able Allergies, Adverse Reactions, Alerts Substance Reaction Status Criticality acetaminophen Unknown Active No Information Medications Medication Instructions Dosage Effective Dates (start - stop) Status Comments warfarin 2.5 mg tablet take 1 tablet by mouth every evening except for mon and fri take 2 tabs - Active tramadol 50 mg tablet take 1 tablet by o ral route as needed - Active spironolactone 25 mg tablet take 1 tablet by oral route every day 25 MG - Active furosemide 40 mg tablet take 1 tablet by oral route 2 times every day 40 MG - Active atorvastatin 80 mg tablet take 1 tablet by oral route every day 80 MG - Active aspirin 81 mg chewable tablet chew 1 tablet by oral route every day 81 MG - Active Symbicort 160 mcg-4.5 mcg/actuation HFA aerosol inhaler as directed - Active albuterol sulfate HFA 90 mcg/actuation aerosol inhaler inhale 2 puff by inhalation route every 4 - 6 hours as needed 180 MCG - Active Procedures Procedure Date ICM DEVICE INTERROGAT REMOTE ANTICOAG MGMT PT WARFARIN ANTICOAG MGMT PT WARFARIN ICM DEVICE INTERROGAT REMOTE Advance Directives Directive Yes / No Effective Date File Name No Information Encounters Encounter Description Practice Location Reason(s) For Visit Diagnoses Date Provider Providers Copied on Encounter [facility], [address] [place] [address], [id number] , tel: [phone] [facility] Presence of cardiac pacemaker 5 Fan Linares. [address] [place] [place], [place], [id number] , . tel: [phone] Referring Provider: Vijay Chavira, [facility] [address], [place], [address] . tel: [phone] sulting Provider: Vijay Chavira, [facility] [address], [place], [address] . tel:[phone] [facility], [address] [place] [address], [id number] , tel: [phone] [facility] Deuel snf (current) use of anticoagulants 5 Fan Linares. [address] [place], [place] [address], [id number] , . tel: [phone] Referring Provider: Jag Peña, [facility] [place], [address] . tel:[phone] [facility], [address] [place] [address], [id number] , tel: [phone] [facility] Deuel snf (current) use of anticoagulants 5 Fan Linares. [address] [place], [place] [address], [place], [id number] , . tel: [phone] Referring Provider: Vijay Chavira, [facility] [address], [place], [address] . tel:[phone] [facility], [address] [place] [address], [id number] , tel: [phone] [facility] [place] Presence of cardiac pacemaker 5 Fan Linares. [facility] [address] [place], [place], [id number] , . tel: [phone] Referring Provider: Vijay Chavira, [address] , [place], [address] . tel: [phone] sulting Provider: Vijay Chavira, [address] , [place], [address] . tel:[phone] [facility] , [address] [place] [address], [id number] , tel: [phone] [facility] Confucianist No Information Crow Toniya. [address] [place] [address], [id number] , . tel: [phone] [facility] , [address] [place] [address], [id number] , tel: [phone] [facility] Confucianist Atrioventricular block, completeRheumatic tricuspid stenosis and insufficiencyUnspeci fied atrial flutterShortness of breathEssential (primary) hypertensionObstruct jacquelyn sleep apnea (adult) (pediatric) Crow Toniya. [address] [place] [address], [id number] , . tel: [phone] Family History Family Member Type Diagnosis Age At Onset No Information Payers Payer name Insurance type Covered green party ID Authoriza timirna(s) [facility] [address] [id number] PPO C [id number] Social History Type Description Quantity Date Captured Comments Sex Male Smoking Status No Information Chief Complaint And Reason For Visit No Information Reason For Referral Reason For Referral No Information Plan Of Treatment Date Type Action Status Appointment Javan Betancur BOOKED History Of Present Illness Encounter Date Complaint History Of Prese nt Illness No Information Functional Status Date Functional Assessmen t No Information Instructions Date Instruction Additional Infor mation No Information Assessments Type Assessment Date No Information Patient Care Teams Name Effective Dates (start - stop) Status Members No Information
--- OUTSIDE RECORDS SUMMARY | 2024-10-27 13:22 | XMS_ITS | Clinical Summary ---
Author Organization [facility] Address [address] [place] [address] Care Team Providers Care Filler Block Inserter Remover Name Role Phone Billy Wells MD Primary Care Provider [phone] Lauro Paz MD Unavailable [phone] Amanda Wheeler MD Unavailable Allergies Active Allergy Reactions Criticality Noted Date Comments Acetaminophen Other (see comment) 01/13/2018 Affects liver Heparin Other (see comment) 02/11/2018 Heparin Induced Thrombocytopenia Medications tenofovir 300 MG tablet Take 1 tablet by mouth daily. 02/24/2018 Active Spacer/Aero-Hol ding Chambers (OPTICHAMBER CHANDLER) Misc 09/22/2018 Activ e zolpidem 10 MG tablet 10 mg daily. 04/13/2019 Active traMADol 50 MG tablet 50 mg every 6 (six) hours as needed. FOR PAIN 03/27/2019 Active pantoprazole EC 20 MG tablet Take 20 mg by mouth daily. Active aspirin EC 81 MG tablet Take 1 tablet (81 mg total) by mouth daily. 90 tablet 1 09/03/2019 Active metoprolol succinate ER 25 MG 24 hr tablet Take 0.5 tablets (12.5 mg total) by mouth daily. 90 tablet 1 09/03/2019 Active potassium chloride CR 20 MEQ tablet Take 1 tablet (20 mEq total) by mouth daily. 90 tablet 1 09/03/2019 Active albuterol sulfate HFA 108 (90 Base) MCG/ACT inhaler Inhale 3 puffs into the lungs every 6 (six) hours as needed. 12/02/2019 Active SYMBICORT 160-4.5 MCG/ACT inhaler Inhale 2 puffs into the lungs 2 (two) times daily. 12/02/2019 Active FUROSEMIDE 20 MG tablet TAKE 1&1/2 TABLETS BY MOUTH 2 TIMES DAILY. 270 tablet 1 03/22/2020 Active warfarin 2.5 MG tablet TAKE 1&1/2 TABS BY MOUTH ON , TH, & SAT, THEN TAKE 1 TAB ALL THE OTHER DAYS. OVERDUE FOR LABS 75 tablet 10/17/2020 Active ATORVASTATIN 80 MG tablet TAKE 1 TABLET (80 MG TOTAL) BY MOUTH NIGHTLY AT BEDTIME. 30 tablet 10/24/2020 Active Active Problems Problem Noted Date Diagnosed Date Complete heart block ([facility]) 9 History of pulmonary embolism 04/14/2018 Cirrhosis of liver without a scites, unspecified hepatic cirrhosis type ([facility]) 04/14/2018 Thrombocytopenia 04/14/2018 Severe tricuspid regurgitation 01/08/2018 Endocarditis 01/08/2018 Pulmonary embolism ([facility]) 01/08/2018 Abnormal heart rhythm Shortness of breath Social History Tobacco Use Types Packs/Day Years [...] 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 on file Not on file Not on file Not on file Not on file Not on file Last Filed Vital Signs Vital Sign Reading Time Taken Comments Blood Pressure 108/72 01/08/2020 5:00 PM CDT Pulse 100 01/08/2020 5:00 PM CDT Temperature 36.8 C (98.3 F) 01/08/2020 2:36 PM CDT Respiratory Rate 28 01/08/2020 5:00 PM CDT Oxygen Saturation 93% 01/08/2020 5:00 PM CDT Inhaled Oxygen Concentration - - Weight 73.4 kg (161 lb 13.1 oz) 01/08/2020 2:36 PM CDT Height 170.2 cm (5' 7) 01/08/2020 2:36 PM CDT Body Mass Index 25.34 01/08/2020 2:36 PM CDT Plan of Treatment Health Maintenance Due Date Last Done Comments Colorectal Cancer Screening Colonoscopy (10 Years) 1955 Hepatitis C 07/02/1973 DTaP, Tdap and Td Vaccines ( 1 - Tdap) 07/02/1974 Pneumococcal Vaccine: 50+ Ye ars (1 of 2 - PCV) 07/02/1974 Zoster Vaccines (1 of 2) 07/02/2005 RSV Immunization or 60+ Years (1 - Risk 60-74 years 1-dose series) 2015 COVID-19 Vaccine ( - 2023-2 5 season) 2023 Meningococcal B Vaccine Aged Out No l onger eligible based on patient's age to complete this topic Meningococcal Vaccine Aged Out No genaro rafia eligible based on patient's age to complete this topic RSV Immunizations Under 20 Months Aged Out No longer eligible based on patient's age to complete this topic Medical Devices Implanted Type Area Manager Placement Device Identifier Shelf Expiration Date Model / Serial / Lot Ra Lead-10/23/19 19 Implanted: by Bryce Patel MD (Quantity not on file) Lead Implant [employer] CARDIAC RHYTHM AND HEART FAILURE - DIV M 4965 EPICARDIAL / [id number] / Rv Lead-10/23/19 19 Implanted: by Bryce Patel MD (Quantity not on file) Lead Implant [employer] CARDIAC RHYTHM AND HEART FAILURE - DIV M 5071 EPICARDIAL / [id number] / Lv Lead-07/23/19 20 Implanted: by Amanda Wheeler MD (Quantity not on file) Lead Implant Heart [employer] 01/09/2021 [id number] / [id number] / Rv Lead-07/23/19 20 Implanted: by Amanda Wheeler MD (Quantity not on file) Lead Implant Heart [employer] 04/16/2021 [id number] / [id number] / Ra Lead-07/23/19 20 Implanted: by Amanda Wheeler MD (Quantity not on file) Lead Implant Heart [employer] 05/11/2021 [id number] / [id number] / Mddipesh Biv Pacemaker- Implanted:Qt y: 1 on 07/23/2019 by Amanda Wheeler MD Pacemaker Left: Chest [employer] 04/14/2020 [id number] / [id number] / Medt Pacemaker- Implanted: by Bryce Patel MD (Quantity not on file) Explanted:Qt y: 1 on 01/08/2020 by Amanda Wheeler MD Pacemaker [employer] CARDIAC RHYTHM AND HEART FAILURE - DIV M [id number] / [id number] / Insurance [address] [place] [address] [place] [address] Advance Directives * Full Code (Latest Code Status on File) Date Activated Date Inactivated Comments 07/23/2019 11:23 AM 07/23/2019 6:18 PM * Full Code Date Activated Date Inactivated Comments 02/11/2018 5:16 PM 02/11/2018 11:36 PM Care Teams Filler Block Inserter Remover Relationship Specialty Start Date End Date Billy Wells MD [address] [facility] [address] [place] [address] PCP - General INTERNAL MEDICINE 01/01/18 Lauro Paz MD [address] [place], [place] [address] [place] Piping Drafter INTERVENTIONAL CARDIOLOGY 01/02/18 Amanda Wheeler MD [address] [place], [place] [address] EP Piping Drafter CLINICAL CARDIAC ELECTROPHYSIOLOGY 12/12/18
== END 2024-10-27 13:15 | disposition home or self-care (01) ==
PROVIDERS: PCP Emergency Medicine; Visit Provider Nurse Practitioner Family
DX: R16.0 Hepatomegaly, not elsewhere classified (principal); K74.60 Unspecified cirrhosis of liver; B19.10 Unspecified viral hepatitis B 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; K76.9 Liver disease, unspecified
CPT/HCPCS: 74178; Q9967

== ENCOUNTER 2024-11-13 07:09 | Outpatient (RCR) | payer MEDICARE, MEDICAID, SELFPAY ==
--- NOTE | 2024-10-08 13:11 | WNDPHOTO ---
PHOTO ONLY - See Nursing Notes and/ or assessments for documentation.
[2024-10-08 13:37] VITALS: BMI 30.4
== END 2025-01-06 23:59 | disposition home or self-care (01) ==
LOC: ANHWOC 07:09
PROVIDERS: PCP Emergency Medicine; Visit Provider Internal Medicine Cardiovascular Disease
DX: L03.90 Cellulitis, unspecified (principal); L97.929 Non-pressure chronic ulcer of unspecified part of left lower leg with unspecified severity; Z48.00 Encounter for change or removal of nonsurgical wound dressing
CPT/HCPCS: 99213; G0463